=== PATIENT | female | born 1975 | race Hispanic/Latino ===

== ENCOUNTER 2018-07-16 01:18 | Observation (INO) | payer MEDICAID, SELFPAY ==
[2018-07-16 01:48] LABS: Pregnancy Test - Urine (BHCG) Negative (Negative); Pregu Control Background? CLEAR/WHITE (CLR/WHITE); Pregu Control Bar Appear? YES (CONTROL BAR)
[2018-07-16 01:51] LABS: Bacteria/HPF None Seen HPF (None Seen)
[2018-07-16 01:56] LABS: Bilirubin Negative (Negative); Blood, Urine Large (Negative); Glucose, Urine (Dipstick) Negative (Negative); Leukocyte Negative (Negative); Nitrite Negative (Negative); Protein, Urine (Dipstick) 30 mg/dL (Neg-Trace); Specific Gravity, Urine 1.025 (1.005-1.030); Urobilinogen 0.2 mg/dL (0.2-1.0)
[2018-07-16 01:57] LABS: Clarity Turbid (Clear); Pathc Cast-AUWi Flag 2.98 (0-2.49)
[2018-07-16 01:58] LABS: Hyaline Casts/LPF NONE SEEN LPF (0-3 Hyaline); Manual Microscopic Reviewed? No Path Casts Seen; RBC/HPF GREATER THAN 50-TNTC HPF (0-3)
[2018-07-16 01:59] LABS: Specific Gravity 1.025 (1.002-1.036)
[2018-07-16 02:16] LABS: #Basophils 0.1 thou/uL (0.0-0.2); #Eosinphils 0.2 thou/uL (0.0-0.7); #Lymphocytes 2.8 thou/uL (1.20-3.40); #Monocytes 0.7 thou/uL (0.11-0.59); #Neutrophils 6.1 thou/uL (1.40-6.50); %Basophils 1.3 % (0.0-1.0); %Eosinophils 2.1 % (0.0-10.0); %Neutrophils 61.6 % (42.0-75.0); Hemoglobin 14.1 g/dL (12.0-16.0); Mean Corpuscular Hemoglobin 34.5 pg (27.0-31.0); Mean Corpuscular Volume 98.4 fL (78.0-98.0); Mean Platelet Volume 7.6 fL (7.4-10.4); Platelet Count 302 thou/uL (130-400); RBC Distribution Width 11.4 % (11.5-14.5); White Blood Cell (WBC) Count 9.8 thou/uL (4.8-10.8)
[2018-07-16 02:44] LABS: ALT (SGPT) 44 U/L (8-55); AST (SGOT) 34 U/L (5-34); Albumin 4.1 g/dL (3.5-5.0); Alkaline Phosphatase 84 U/L (40-150); Anion Gap 11 mmol/L (10-20); BUN (Urea Nitrogen) 14 mg/dL (7.0-18.7); Bilirubin, Total 0.4 mg/dL (0.2-1.2); Calc. Creatinine Clearance 0 mL/min (70-130); Calcium 9.1 mg/dL (7.8-10.44); Carbon Dioxide 27 mmol/L (22-29); Chloride 102 mmol/L (98-107); Estimated GFR-MDRD 79; Globulin 3.9 g/dL (2.4-3.5); Glucose 114 mg/dL (70-105); Potassium 4.1 mmol/L (3.5-5.1); Sodium 136 mmol/L (136-145)
[2018-07-16 03:21] LABS: CKMB 1.5 ng/mL (0-6.6)
[2018-07-16] MEDS ORDERED: Morphine 4 MG/ML VIAL ONE (03:40)
[2018-07-16] MEDS ORDERED: Ketorolac Tromethamine 30 MG/ML VIAL ONE ×2 (03:40→10:30)
[2018-07-16] MEDS ORDERED: Nitroglycerin 2% Ointment 1 INCH/1 GM Packet ONE (06:03)
--- NOTE | 2018-07-16 08:14 | CT ---
PRELIMINARY REPORT/[facility]/EMERGENTY AFTER-HOURS PROCEDURE CT Angiography Chest With Contrast EXAM DATE/TIME: 07/16/2018 4:23 AM CLINICAL HISTORY: 42 years old, female; Pain; Chest pain; Type not specified; Abdominal pain; Flank; Lower; Patient HX: Patient states she thinks she has a kidney infection, reports back pain for 5 days. TECHNIQUE: Axial computed tomographic angiography images of the chest with intravenous contrast using CT angiogr aphy protocol. MIP reconstructed images were created and reviewed. COMPARISON: No relevant prior studies available. FINDINGS: Pulmonary arteries: There is no evidence of peripheral filling defects within the pulmonary arterial circulation to suggest pulmonary embolism. Aorta: The aorta is normal. There is no evidence of aortic dissection, leak, rupture, or other compli cations. Thyroid: The visualized thyroid gland is unremarkable. Lungs: Normal. No consolidation. No masses. Pleural space: Normal. No pneumothorax. No pleural effusion. Heart: Normal. No cardiomegaly. No pericardial effusion. Mediastinum: The trachea is normal. Lymph nodes: Unremarkable. No enlarged lymph nodes. Bones/joints: Unremarkable. No acute fracture. Soft tissues: Unremarkable. IMPRESSION: 1. There is no CT evidence of acute pulmonary embolism. 2. There is no evidence of aortic dissection, leak, rupture, or other complications. CT Angiography Abdomen With Contrast EXAM DATE/TIME: 07/16/2018 4:23 AM TECHNIQUE: Axial computed tomographic angiography images of the abdomen with intravenous contrast material, incl uding non-contrast images if performed. MIP and/or 3D reconstructed images were created and reviewed. MIP reconstructed images were created and reviewed. COMPARISON: No relevant prior studies available. FINDINGS: Lungs: Unremarkable. No consolidation. VASCULATURE: Aorta: The aorta is normal. There is no evidence of aortic dissection, leak, rupture, or other compli cations. Celiac trunk and mesenteric arteries: No occlusion or significant stenosis. Renal arteries: No occlusion or significant stenosis. ABDOMEN: Liver: There is a diffuse decrease in hepatic parenchymal density, consistent with mild fatty infiltr ation. Gallbladder and bile ducts: There has been a cholecystectomy. Pancreas: The pancreas appears normal. No ductal dilatation. Spleen: The spleen is normal. Adrenals: The adrenal glands are normal. Kidneys and ureters: The kidneys appear normal. No hydronephrosis. Stomach and bowel: There is no evidence of intestinal perforation or obstruction. The stomach is norm al. The duodenum is unremarkable. Appendix: A normal appendix is identified. Intraperitoneal space: Unremarkable. No free air. No significant fluid collection. Bones/joints: Unremarkable. No acute fracture. No dislocation. Soft tissues: Unremarkable. Lymph nodes: Unremarkable. No enlarged lymph nodes. IMPRESSION: There is no evidence of aortic dissection, leak, rupture, or other complications. Thank you for allowing us to participate in the care of your patient. Dictated and Authenticated by: Francisco Covington MD 07/16/2018 6:24 AM Central Time ([place] & [place]) FINAL REPORT CT ANGIOGRAM OF ABDOMEN AND CHEST AORTIC DISSECTION PROTOCOL: Date: 07/16/18 HISTORY: Pain. COMPARISON: Radiograph same date. TECHNIQUE: CT angiogram of the chest and abdomen performed after the intravenous administration of contrast for dissection protocol. 3D rendering was provided. FINDINGS/IMPRESSION: Findings and impression are concordant with the preliminary report by Vee. POS: [facility]
--- NOTE | 2018-07-16 09:22 | RAD ---
CHEST 1 VIEW: Date: 07/16/18 HISTORY: Chest pain. COMPARISON: Radiograph dated 01/04/17. FINDINGS: Lungs are clear. No pneumothorax or effusion. Cardiac silhouette and mediastinal contours within norm al limits. IMPRESSION: No acute intrathoracic abnormality. POS: [facility]
[2018-07-16] MEDS ORDERED: Acetaminophen 325 MG TAB PO PRN (09:37)
[2018-07-16] MEDS ORDERED: Ondansetron ODT 4 MG TAB PO PRN (09:37)
[2018-07-16] MEDS ORDERED: Ondansetron PF 4 MG/2 ML Vial IVP PRN (09:37)
[2018-07-16] MEDS ORDERED: Pantoprazole 40 MG VIAL IVP SCH ×2 (09:41→10:30)
[2018-07-16] MEDS ORDERED: Ketorolac Tromethamine 30 MG/ML VIAL IVP PRN (09:47)
[2018-07-16 10:00] LABS: Troponin I 0.032 ng/mL (< 0.028)
--- NOTE | 2018-07-16 10:26 | CT ---
CT ABDOMEN AND PELVIS WITHOUT CONTRAST STONE PROTOCOL: Date: 07/16/18 HISTORY: Evaluate for stone. COMPARISON: CT same date. FINDINGS: Lung bases are clear. No pericardial effusion. There is contrast within the renal collecting systems, for which a calculus is not able to be visuali zed. No hydroureteronephrosis. There is contrast within the urinary bladder. IMPRESSION: Contrast throughout the renal collecting systems and urinary bladder, for which there is inability of visualization of a calculus due to the contrast. There is, however, no secondary evidence of recentl y passed stone. There is no hydroureteronephrosis. Of note, there was no stone on the CT earlier this morning. POS: [facility]
[2018-07-16] MEDS ORDERED: Pantoprazole 40 MG VIAL ONE (10:30)
[2018-07-16] MEDS ORDERED: Enoxaparin Sodium 40 MG/0.4 ML SYRINGE ONE (10:30)
[2018-07-16 14:28] VITALS: BMI 36.1
[2018-07-16] MEDS: Sodium Chloride 0.9% 1,000 ML IV SCH ×2 (14:46→20:16)
[2018-07-16] MEDS ORDERED: Iopamidol 370 76% 100 ML VIAL ONE (17:11)
[2018-07-16] MEDS: HYDROcodone/Acetaminophen 5/325 mg Tablet PO PRN (19:02)
[2018-07-16] MEDS: Metoprolol Tartrate 50 MG TAB PO SCH (20:10)
[2018-07-16] MEDS: Pantoprazole 40 MG VIAL IVP SCH (20:10)
--- NOTE | 2018-07-16 20:45 | HP ---
PRIMARY CARE PHYSICIAN: Ms. Allie Aden. CHIEF COMPLAINT: Epigastric pain and nausea. HISTORY OF PRESENT ILLNESS: Mrs. Vasquez is a pleasant 42-year-old female, who had presented to [facility] with back pain and worsening epigastric pain that is worse after meals. She also reports pain is worse with movement. She states pain came on suddenly roughly 4 days ago and has gradually worsened each day. She states she has a past medical history of hypertension, which she was recently started on lisinopril and metoprolol by her primary care physician about 1-1/2 months ago. She also reports taking fluoxetine for history of depression. She states she is otherwise healthy with no other complaints. She states during this time, she denied any fever, chills, coughing, or shortness of breath. She states she had felt nauseous; however, she has denied any vomiting at this time. She states the pain that she is having is similar to how it felt when she had a flare-up of her gallbladder, which was surgically removed around that time. She denies any headache, dizziness, or trauma at this time. Upon arrival to the ER, her blood pressure was elevated at 186/106. She was given IV labetalol and transdermal nitroglycerin. She was also given aspirin 324mg orally and IV Toradol. She was also given IV morphine and a liter of normal saline. She states after these her symptoms did improve. She was accompanied by a family member at bedside, who had brought her into the emergency department earlier today. Her initial workup included troponins which were found to be slightly elevated at 0.041, which trended to 0.032. D-dimer was negative at 0.43. Urine was negative. She also underwent CT for dissection protocol, which was found to be unremarkable. She was deemed appropriate for an admission on the observation unit for further evaluation and management of her symptoms. REVIEW OF SYSTEMS: All other review of systems reviewed and negative unless mentioned in the HPI. PAST MEDICAL HISTORY: Hypertension. PAST SURGICAL HISTORY: Cholecystectomy and section. SOCIAL HISTORY: Reports 3 to 4 drinks about three times a week, denies any tobacco use or any illicit drug use. PSYCHIATRIC HISTORY: Does report some anxiety and depression. ALLERGIES: NO KNOWN ALLERGIES. CURRENT HOME MEDICATIONS: 1. Lisinopril 20 mg p.o. daily. 2. Metoprolol 50 mg p.o. b.i.d. 3. Fluoxetine 20 mg p.o. daily. PHYSICAL EXAMINATION: VITAL SIGNS: BP 140/65, pulse 69, respirations 16, temp 98.7 degrees Fahrenheit , O2 saturations 96% on room air. GENERAL: The patient is awake, alert, oriented x3. Appears to be in mild acute distress due to her epigastric pain. HEENT: Head is atraumatic and normocephalic. Pupils round and reactive to light. Extraocular muscles intact. Moist mucous membranes noted. Uvula midline. NECK: No JVD. Trachea midline. LUNGS: Clear to auscultation bilaterally. No wheezes, no rhonchi noted. CARDIOVASCULAR: Positive S1 and S2. Regular rate and rhythm. No murmur, no rub ABDOMEN: Soft, positive tenderness in epigastric area along with right upper quadrant. No rebound. No guarding. Bowel sounds present. MUSCULOSKELETAL: Strength 5+ bilaterally in upper and lower extremities. Pulses palpable bilaterally in upper and lower extremities. BACK: Positive CVA tenderness and tenderness to palpation over flank and around bilateral sides. NEUROLOGIC: Cranial nerves 2 through 12 intact. No focal deficits noted. Speech is intact and responding to questions normally. PSYCHIATRIC: Good mood and affect. LABORATORY DATA: WBC 9.8, RBC 4.1, hemoglobin 14.1, platelets 302. D-dimer is 0.43. Sodium 136, potassium 4.1, anion gap 11, creatinine 0.8, estimated GFR 79 , glucose 114, AST 34, ALT 44, alkaline phosphatase 84, CK-MB 1.5. Troponin upon admission 0.041, trended down at 0.032. Lipase 52. Urinalysis, red in color, 30+ protein, large blood, 7 to 10 WBCs, 7 to 10 squamous epithelial cells. negative. DIAGNOSTIC IMAGING: CT aortic dissection protocol found no CT evidence of acute pulmonary embolism. There is no evidence of aortic dissection leak, rupture, or other complications. ASSESSMENT AND PLAN: 1. Epigastric pain, this is likely noncardiac. However, with her elevated troponin, we will obtain stress test and echocardiogram. We will place the patient on IV Toradol as needed for her pain. We will check CT to rule out kidney stone. 2. Back pain. We will rule out kidney stone. We will also check urine culture. Her pain and symptoms seem to be worse with movement and activity, this is likely secondary to musculoskeletal in nature, continue IV Toradol as needed for her pain. Further workup and medical management pending her progress and clinical finding. 3. Elevated troponin, this is likely secondary to elevated blood pressures. We will monitor the patient's vital signs closely along with her clinical findings. We will hold off Cardiology consult for now. We will obtain stress test and echocardiogram for further evaluation. 4. Hypertension. Continue on patient's home regimen including lisinopril and metoprolol. Further adjustments pending her progress. 5. Anxiety and depression. Continue on patient's home dose of Prozac. 6. Gastrointestinal prophylaxis with IV Protonix and Zofran as needed for nausea. 7. Deep venous thrombosis prophylaxis with Lovenox. 8. Code status; full code. Job ID: [id number] MTDD
[2018-07-17] MEDS: Sodium Chloride 0.9% 1,000 ML IV SCH (05:50)
[2018-07-17 06:06] LABS: #Basophils 0.1 thou/uL (0.0-0.2); #Eosinphils 0.2 thou/uL (0.0-0.7); #Lymphocytes 1.9 thou/uL (1.20-3.40); #Monocytes 0.4 thou/uL (0.11-0.59); #Neutrophils 3.6 thou/uL (1.40-6.50); %Eosinophils 3.5 % (0.0-10.0); %Lymphocytes 30.3 % (21.0-51.0); %Monocytes 5.9 % (0.0-10.0); %Neutrophils 59.3 % (42.0-75.0); Hemoglobin 12.5 g/dL (12.0-16.0); Mean Corpuscular HGB CONC 34.6 g/dL (32.0-36.0); Mean Corpuscular Hemoglobin 34.2 pg (27.0-31.0); Mean Corpuscular Volume 98.9 fL (78.0-98.0); Mean Platelet Volume 7.5 fL (7.4-10.4); Platelet Count 268 thou/uL (130-400); RBC Distribution Width 11.3 % (11.5-14.5); Red Blood Cell (RBC) Count 3.65 mill/uL (4.20-5.40); White Blood Cell (WBC) Count 6.1 thou/uL (4.8-10.8)
[2018-07-17 06:27] LABS: ALT (SGPT) 54 U/L (8-55); AST (SGOT) 40 U/L (5-34)
[2018-07-17 06:28] LABS: Anion Gap 8 mmol/L (10-20); BUN (Urea Nitrogen) 7 mg/dL (7.0-18.7); Calc. Creatinine Clearance 146 mL/min (70-130); Calcium 8.1 mg/dL (7.8-10.44); Carbon Dioxide 27 mmol/L (22-29); Chloride 104 mmol/L (98-107); Estimated GFR-MDRD Greater than 90; Glucose 102 mg/dL (70-105); Lipase 30 U/L (8-78); Potassium 4.1 mmol/L (3.5-5.1); Sodium 135 mmol/L (136-145)
[2018-07-17] MEDS ORDERED: FLUoxetine HCl 20 MG CAP PO SCH (09:00)
[2018-07-17] MEDS ORDERED: Enoxaparin Sodium 40 MG/0.4 ML SYRINGE SC SCH (09:00)
[2018-07-17] MEDS ORDERED: Lisinopril 20 MG TAB PO SCH (09:00)
[2018-07-17] MEDS ORDERED: ADENOSINE 60 MG/20 ML VIAL ONE (09:32)
[2018-07-17] MEDS: Metoprolol Tartrate 50 MG TAB PO SCH (10:34)
[2018-07-17] MEDS: HYDROcodone/Acetaminophen 5/325 mg Tablet PO PRN (10:35)
[2018-07-17] MEDS: Pantoprazole 40 MG VIAL IVP SCH (10:35)
[2018-07-17 10:52] VITALS: TEMP 98
--- NOTE | 2018-07-17 11:00 | ULT ---
RIGHT UPPER QUADRANT ULTRASOUND: COMPARISON: 01/04/2017 ultrasound exam. INDICATION: Epigastric pain. FINDINGS: The gallbladder is not visualized. Correlate for a history of prior surgical removal. There is incr eased echogenicity of the liver which can be seen in the setting of fatty infiltration. No ascites. The common duct is normal measuring 5 mm in diameter. IMPRESSION: 1. Status post cholecystectomy. 2. Increased echogenicity of the liver which can be seen in the setting of fatty infiltration. POS: [facility]
--- NOTE | 2018-07-17 11:38 | NM ---
NUCLEAR MEDICINE CARDIAC PERFUSION EXAMINATION WITH EJECTION FRACTION: HISTORY: A 42-year-old female with chest pain, hypertension, and dyslipidemia. TECHNIQUE: A single-day nuclear medicine cardiac perfusion examination was performed. Rest images were obtained using 10.9 mCi of Technetium 99m sestamibi. Stress images were obtained using 30.9 mCi of Technetiu m 99m sestamibi and adenosine. FINDINGS: Tomographic images show no fixed or reversible perfusion defects. Gated images show normal wall silvia on with an ejection fraction of 52%. EDV is 134 mL. LHR is 0.2. TID is 1.18. IMPRESSION: No evidence of ischemia. POS: [facility]
[2018-07-17 12:19] VITALS: BP 173/81
--- NOTE | 2018-07-17 14:15 | PDOC.EVN ---
Event Note - Event Note Event Note: patient seen, case reviewed, agree with management
--- NOTE | 2018-07-21 10:32 | STRESS ---
Acquisition Time: 2018-07-17 08:59:38 Total Exercise Time: 00:04:00 Test Indications: CHEST PAIN Medications: Protocol: ADENOSINE Max HR: 104 BPM 58% of Pred: 179 BPM Max BP: 206/100 mmHG Max Work Load: 1.0 METS RESTING ECG: NORMAL SINUS RHYTHM AT 64 BPM WITH NON-SPECIFIC T-WAVE CHANGES SYMPTOMS: SHORTNESS OF BREATH AND CHEST PAIN NORMAL BP RESPONSE ECTOPY: NONE ECG STRESS: INVERTED T-WAVE IN V6 INTERPRETATION: AWAIT NUCLEAR IMAGES FOR DEFINITIVE DIAGNOSIS Confirmed by AHMET BLACKMAN ([id number]), clinical editor JARET WHEELER ([id number]) on 07/21/2018 10:31:35 AM Referred By: NICOLA COX Confirmed By:AHMET BLACKMAN
--- NOTE | 2018-07-22 19:11 | EKG ---
Test Reason : BACK PAIN Blood Pressure : / mmHG Vent. Rate : 075 BPM Atrial Rate : 075 BPM P-R Int : 182 ms QRS Dur : 082 ms QT Int : 402 ms P-R-T Axes : 014 -02 084 degrees QTc Int : 448 ms Normal sinus rhythm Voltage criteria for left ventricular hypertrophy Abnormal ECG Confirmed by COLLIN RALPH ([id number]), newspaper copy editor YONATHAN JOSEPH ([id number]) on 07/22/2018 7:10:33 PM Referred By: Confirmed By:COLLIN RALPH
== END 2018-07-17 15:15 | disposition home or self-care (01) ==
LOC: ERS 01:18 → ERHOLD 06:41 → 2SW 14:17
PROVIDERS: ADMIT Internal Medicine; ATTEND Internal Medicine
DX: R10.13 Epigastric pain (principal); R11.0 Nausea; I10 Essential (primary) hypertension; F41.9 Anxiety disorder, unspecified; F32.9 Major depressive disorder, single episode, unspecified; R79.89 Other specified abnormal findings of blood chemistry; Z79.899 Other long term (current) drug therapy
CPT/HCPCS: 36415; 71045; 71275; 74176; 76705; 78452; 80048; 80053; 81003; 81015; 81025; 82553; 83690; 84450; 84460; 84484; 85025; 85379; 87086; 93005; 93017; 96361; 96372; 96374; 96375; 96376; A9500; C9113; G0378; J0153; J1650; J1885; J2270; J3490

== ENCOUNTER 2018-08-31 21:06 | Inpatient (IN) | payer OTHER, SELFPAY ==
[~2018-08-31 21:06] MED LIST: Calcium Chloride 1 GM/10 ML Abboject SYRINGE ONE; EPINEPHrine 1 MG/10 ML Abboject SYRINGE ONE; ISOVUE-370 76%-LOCM 1 ML ONE; Norepinephrine 4 MG/4 ML VIAL ONE; PHENYLEPHRINE-NS 100 MCG/ML 10 ML SYRINGE ONE; Rocuronium Bromide 10 MG/ML (10ML VIAL) ONE; Sodium Bicarb 50 MEQ/50 ML VIAL ONE
[2018-08-31] MEDS ORDERED: Succinylcholine Chloride 20 MG/ML 10 ml SYRINGE FS ONE (21:23)
[2018-08-31] MEDS ORDERED: Lidocaine 2% PF 100 mg/5 ml Syringe ONE (21:23)
[2018-08-31] MEDS ORDERED: Fentanyl 100 MCG/2 ML VIAL ONE (21:23)
[2018-08-31 21:47] LABS: Hemoglobin 10.6 g/dL (12.0-16.0); Mean Corpuscular HGB CONC 33.3 g/dL (32.0-36.0); Mean Corpuscular Hemoglobin 35.7 pg (27.0-31.0); Mean Platelet Volume 8.2 fL (7.4-10.4); Platelet Count 254 thou/uL (130-400); RBC Distribution Width 11.5 % (11.5-14.5); Red Blood Cell (RBC) Count 2.96 mill/uL (4.20-5.40); White Blood Cell (WBC) Count 5.9 thou/uL (4.8-10.8)
[2018-08-31 21:48] LABS: BHCG - Serum Negative (NEGATIVE); Pregs Control Background? CLEAR/WHITE (CLR/WHITE); Pregs Control Bar Appear? YES (CONTROL BAR)
[2018-08-31 21:50] LABS: INR-International Normal Ratio 1.3; Prothrombin Time 16.1 SEC (12.0-14.7)
[2018-08-31 21:51] LABS: PTT 38.5 SEC (22.9-36.1)
[2018-08-31 21:55] LABS: ALT (SGPT) 464 U/L (8-55); AST (SGOT) 587 U/L (5-34); Albumin 3.2 g/dL (3.5-5.0); Alkaline Phosphatase 72 U/L (40-150); Anion Gap 27 mmol/L (10-20); BUN (Urea Nitrogen) 12 mg/dL (7.0-18.7); Bilirubin, Total 0.2 mg/dL (0.2-1.2); Calc. Creatinine Clearance 0 mL/min (70-130); Calcium 8.5 mg/dL (7.8-10.44); Carbon Dioxide 11 mmol/L (22-29); Chloride 108 mmol/L (98-107); Estimated GFR-MDRD 49; Globulin 2.7 g/dL (2.4-3.5); Glucose 198 mg/dL (70-105); Potassium 4.3 mmol/L (3.5-5.1); Protein, Total 5.9 g/dL (6.0-8.3); Sodium 142 mmol/L (136-145)
[2018-08-31 21:59] LABS: Band 5 % (5-11); Hypochromia SLIGHT = 6-15 cells (100X) (0-5/hpf); Lymphocytes 76 % (21-51); MDiff Complete? YES; Macrocytosis SLIGHT = 6-15 cells (100X) (0-5/hpf); Monocytes 4 % (0-10); Neutrophil 15 % (42-75); Platelet Morphology Comment Appears Adequate
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
[2018-08-31] MEDS ORDERED: Sodium Chloride 0.9% 30 ML ONE (22:27)
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
[2018-08-31] MEDS ORDERED: Midazolam HCl 5 mg/5 ml Vial ONE (22:37)
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
[2018-08-31] MEDS ORDERED: Insulin Regular 300 UNITS/3 ML VIAL ONE (22:59)
[2018-08-31] MEDS ORDERED: Sodium Bicarb 50 MEQ/50 ML Abboject 8.4% SYRINGE ONE ×3 (23:02→23:32)
[2018-08-31] MEDS ORDERED: Norepinephrine 8 MG/0.9% NS 250 ML ONE (23:04)
[2018-08-31] MEDS ORDERED: Heparin 10,000 UNITS/1 ML VIAL ONE (23:20)
[2018-08-31 23:56] LABS: PTT 72.6 SEC (22.9-36.1); Prothrombin Time 22.8 SEC (12.0-14.7)
[2018-09-01 00:18] LABS: Hemoglobin 5.8 g/dL (12.0-16.0)
[2018-09-01] MEDS ORDERED: Fentanyl 100 MCG/2 ML VIAL ONE (01:04)
[2018-09-01] MEDS: fentaNYL Citrate/PF 2,000 MCG in Sodium Chloride 0.9% 60 ML IV SCH ×2 (01:15→21:52)
[2018-09-01] MEDS ORDERED: Boostrix 0.5 ML VIAL IM ONE (01:18)
[2018-09-01] MEDS ORDERED: Dextrose 5% in Water 1,000 ML IV PRN (01:21)
[2018-09-01] MEDS ORDERED: Dextrose 50% Abboject 50 ML SYRINGE SLOW IVP PRN (01:21)
[2018-09-01] MEDS ORDERED: Sodium Chloride 0.9% 1,000 ML IV SCH (01:21)
[2018-09-01 01:29] LABS: Actual Bicarbonate (HCO3a) 18.8 mEq/L (22-28); Base Excess (BEa) -7.1 mEq/L (-2.0 to +3.0); CO2 Tension 39.2 mmHg (35.0-45.0); Calcium, Ionized 1.02 mmol/L (1.12-1.30); Carboxyhemoglobin (COHb) 0.2 gm% (0.0-3.0); Hemoglobin (Hb) 9.8 g/dL (12.0-16.0); O2 Tension (PaO2) 107.2 mmHg (80.0-100.0); Potassium - ABG Lab 3.41 mmol/L (3.70-5.30)
[2018-09-01] MEDS: Lactated Ringer's 1,000 ML IV SCH ×5 (01:35→20:00)
[2018-09-01 01:43] LABS: INR-International Normal Ratio 1.3; Prothrombin Time 15.9 SEC (12.0-14.7)
[2018-09-01 01:46] LABS: Puncture Site LINE
[2018-09-01 01:53] LABS: Anion Gap 19 mmol/L (10-20); BUN (Urea Nitrogen) 11 mg/dL (7.0-18.7); Calc. Creatinine Clearance 107 mL/min (70-130); Calcium 7.9 mg/dL (7.8-10.44); Carbon Dioxide 20 mmol/L (22-29); Chloride 112 mmol/L (98-107); Estimated GFR-MDRD 64; Glucose 181 mg/dL (70-105); Magnesium 1.6 mg/dL (1.6-2.6); Phosphorus 2.6 mg/dL (2.3-4.7); Potassium 3.5 mmol/L (3.5-5.1); Sodium 147 mmol/L (136-145)
[2018-09-01] MEDS ORDERED: Adacel (T-DAP) 0.5 ML SYRINGE IM ONE (02:00)
[2018-09-01 02:04] LABS: Amphetamine Not Detected (NotDetected); Barbiturates Screen Not Detected (NotDetected); Benzodiazepine Screen Not Detected (NotDetected); Cocaine Metabolite Screen Detected (NotDetected); Medtox Control Line Valid? VALID (VALID); Medtox Reader # READER 1; Methadone Not Detected (NotDetected); Methamphetamine Not Detected (NotDetected); Opiate Screen Not Detected (NotDetected); Oxycodone Screen Not Detected (NotDetected); Phencyclidine (PCP) Not Detected (NotDetected); THC/Cannabinoid Screen Not Detected (NotDetected); Tricyclic Screen Not Detected (NotDetected)
[2018-09-01 02:11] LABS: Hemoglobin 9.7 g/dL (12.0-16.0); Mean Corpuscular HGB CONC 32.8 g/dL (32.0-36.0); Mean Corpuscular Hemoglobin 29.4 pg (27.0-31.0); Mean Corpuscular Volume 89.7 fL (78.0-98.0); Mean Platelet Volume 7.3 fL (7.4-10.4); Platelet Count 96 thou/uL (130-400); RBC Distribution Width 13.1 % (11.5-14.5); Red Blood Cell (RBC) Count 3.29 mill/uL (4.20-5.40); White Blood Cell (WBC) Count 6.1 thou/uL (4.8-10.8)
[2018-09-01 02:26] LABS: Band 10 % (5-11); Hypochromia SLIGHT = 6-15 cells (100X) (0-5/hpf); Lymphocytes 11 % (21-51); MDiff Complete? YES; Neutrophil 79 % (42-75); Platelet Morphology Comment Appears Decreased
[2018-09-01 02:30] LABS: Anion Gap 17 mmol/L (10-20); BUN (Urea Nitrogen) 11 mg/dL (7.0-18.7); Calc. Creatinine Clearance 103 mL/min (70-130); Carbon Dioxide 21 mmol/L (22-29); Chloride 113 mmol/L (98-107); Estimated GFR-MDRD 61; Glucose 152 mg/dL (70-105); Magnesium 1.5 mg/dL (1.6-2.6); Potassium 3.2 mmol/L (3.5-5.1); Sodium 148 mmol/L (136-145)
[2018-09-01 02:32] LABS: Phosphorus 1.9 mg/dL (2.3-4.7)
[2018-09-01] MEDS ORDERED: PROPOFOL 0 ML ONE (03:00)
[2018-09-01] MEDS: Propofol 1,000 MG/100 ML VIAL IV ONE ×2 (03:02→03:03)
[2018-09-01] MEDS ORDERED: Magnesium 2 GM/50 ML 2 GM in Premix Bag 1 BAG IVPB SCH (03:30)
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
[2018-09-01] MEDS ORDERED: Calcium Chloride 13.6 MEQ in Sodium Chloride 0.9% 100 ML IVPB SCH (04:00)
[2018-09-01] MEDS ORDERED: Potassium Phosphate 30 MMOL in Sodium Chloride 0.9% 500 ML IVPB SCH (04:00)
[2018-09-01] MEDS ORDERED: Fentanyl BOLUS 250 ML IVPB PRN (05:18)
[2018-09-01] MEDS ORDERED: DISCONTINUE PREVIOUS NARCOTIC PAIN MEDICATIONS AND BENZODIAZEPINES FS SCH (05:18)
[2018-09-01] MEDS ORDERED: Propofol BOLUS 1,000 MG/100 ML VIAL IV PRN (05:18)
[2018-09-01] MEDS ORDERED: Lorazepam 2 MG/ML VIAL SLOW IVP PRN (05:18)
[2018-09-01 05:58] LABS: INR-International Normal Ratio 1.2; Prothrombin Time 15.5 SEC (12.0-14.7)
[2018-09-01 06:12] LABS: Lactic Acid 4.9 mmol/L (0.5-2.2)
[2018-09-01 06:15] LABS: Anion Gap 12 mmol/L (10-20); BUN (Urea Nitrogen) 14 mg/dL (7.0-18.7); Band 8 % (5-11); Calc. Creatinine Clearance 83 mL/min (70-130); Calcium 9.6 mg/dL (7.8-10.44); Carbon Dioxide 25 mmol/L (22-29); Chloride 115 mmol/L (98-107); Estimated GFR-MDRD 47; Glucose 99 mg/dL (70-105); Hemoglobin 8.7 g/dL (12.0-16.0); Hypochromia SLIGHT = 6-15 cells (100X) (0-5/hpf); Lymphocytes 24 % (21-51); MDiff Complete? YES; Magnesium 1.5 mg/dL (1.6-2.6); Mean Corpuscular HGB CONC 34.6 g/dL (32.0-36.0); Mean Corpuscular Hemoglobin 30.8 pg (27.0-31.0); Mean Platelet Volume 7.6 fL (7.4-10.4); Monocytes 3 % (0-10); Neutrophil 65 % (42-75); Phosphorus 2.3 mg/dL (2.3-4.7); Platelet Count 169 thou/uL (130-400); Platelet Morphology Comment Appears Adequate; Potassium 3.3 mmol/L (3.5-5.1); RBC Distribution Width 13.2 % (11.5-14.5); Red Blood Cell (RBC) Count 2.84 mill/uL (4.20-5.40); Sodium 149 mmol/L (136-145); White Blood Cell (WBC) Count 6.4 thou/uL (4.8-10.8)
[2018-09-01 07:32] LABS: Actual Bicarbonate (HCO3a) 26.2 mEq/L (22-28); Base Excess (BEa) 0.9 mEq/L (-2.0 to +3.0); CO2 Tension 44.9 mmHg (35.0-45.0); Calcium, Ionized 1.21 mmol/L (1.12-1.30); Carboxyhemoglobin (COHb) 0.4 gm% (0.0-3.0); Hemoglobin (Hb) 8.9 g/dL (12.0-16.0); O2 Tension (PaO2) 93.1 mmHg (80.0-100.0); Potassium - ABG Lab 3.73 mmol/L (3.70-5.30); pH, Arterial 7.38 (7.35-7.45)
[2018-09-01 07:33] LABS: ALV-art Gradient 135.975 (0-20); Puncture Site ALINE
[2018-09-01] MEDS: Famotidine/PF 20 mg/2ml Vial SLOW IVP SCH ×2 (08:37→21:27)
[2018-09-01] MEDS: CEFAZOLIN 2 GM in Premix Bag 1 BAG IVPB SCH ×2 (08:38→16:21)
--- NOTE | 2018-09-01 08:50 | RAD ---
CHEST 1 VIEW: Date: 09/01/18 HISTORY: Dyspnea. Surgery. Follow-up. COMPARISON: 08/31/18. FINDINGS: Cardiac silhouette is magnified by projection. Shallow inspiration accentuates pulmonary markings. Me diastinum is midline. Tip of the endotracheal catheter is at the level of the joseph. Tip of a left s ubclavian central venous catheter overlies the right atrium. No evidence of pneumothorax. Radiopaque bands over the upper abdomen are consistent with sponges from recent surgery. university president leads o verlie the chest. IMPRESSION: Endotracheal catheter tip is at the level of the joseph and should probably be withdrawn slightly at the time of this exam. Subsequent chest radiograph shows better placement of the catheter. POS: [facility]
--- NOTE | 2018-09-01 08:55 | RAD ---
CHEST 1 VIEW: HISTORY: Endotracheal catheter repositioned. COMPARISON: Earlier exam on the same date. FINDINGS: The tip of the endotracheal catheter is now approximately 3 cm above the level of the joseph, in good radiographic position. Other findings are stable. POS: [facility]
[2018-09-01] MEDS ORDERED: Piperacillin/Tazobactam 3.375 GM in Sodium Chloride 0.9% 100 ML IVPB SCH (09:00)
[2018-09-01] MEDS ORDERED: Famotidine 20 MG TAB PO SCH (09:00)
[2018-09-01] MEDS ORDERED: Prevnar 13-Val Conj/PF 0.5 ML SYRINGE IM ONE (09:00)
--- NOTE | 2018-09-01 09:14 | RAD ---
SINGLE VIEW OF THE CHEST: COMPARISON: 09/01/2018 at 1:24 a.m. HISTORY: Endotracheal tube replacement and withdrawal. FINDINGS: A single view of the chest shows a normal-size cardiomediastinal silhouette. The endotracheal tube h as been withdrawn with its tip between the clavicles and in good position. The other lines and tubes are unchanged in position. There is no evidence of consolidation, mass, or pleural effusion. There appear to be multiple radiopaque sponges in the upper abdomen. IMPRESSION: Appropriate position of an endotracheal tube. POS: [facility]
[2018-09-01] MEDS ORDERED: Potassium Chloride 40 MEQ in Premix Bag 1 BAG IVPB SCH (09:15)
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
[2018-09-01] MEDS: Propofol 1,000 MG/100 ML VIAL IV PRN (11:20)
[2018-09-01] MEDS ORDERED: Acetaminophen 1,000 MG in Premix Bag 1 BAG IVPB SCH (15:15)
[2018-09-01] MEDS: Acetaminophen 1,000 MG in Premix Bag 1 BAG IVPB SCH (18:46)
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
[2018-09-01] MEDS ORDERED: Lactated Ringer's 500 ML IV SCH (19:45)
[2018-09-01] MEDS: Lactated Ringer's 500 ML IV SCH (19:45)
[2018-09-02] MEDS: CEFAZOLIN 2 GM in Premix Bag 1 BAG IVPB SCH ×4 (00:02→23:07)
[2018-09-02] MEDS: Propofol 1,000 MG/100 ML VIAL IV PRN ×2 (00:10→18:14)
[2018-09-02] MEDS: Lactated Ringer's 1,000 ML IV SCH (03:01)
[2018-09-02] MEDS ORDERED: Lactated Ringer's 500 ML IV SCH (03:45)
[2018-09-02 05:00] LABS: Anion Gap 15 mmol/L (10-20); BUN (Urea Nitrogen) 25 mg/dL (7.0-18.7); Calc. Creatinine Clearance 56 mL/min (70-130); Calcium 7.4 mg/dL (7.8-10.44); Carbon Dioxide 24 mmol/L (22-29); Chloride 114 mmol/L (98-107); Estimated GFR-MDRD 30; Glucose 97 mg/dL (70-105); Magnesium 1.6 mg/dL (1.6-2.6); Phosphorus 6.3 mg/dL (2.3-4.7); Potassium 4.6 mmol/L (3.5-5.1); Sodium 148 mmol/L (136-145)
[2018-09-02] MEDS: Acetaminophen 1,000 MG in Premix Bag 1 BAG IVPB SCH ×4 (05:09→18:14)
[2018-09-02 05:28] LABS: Band 42 % (5-11); Eosinophils 1 % (0-10); Hemoglobin 8.5 g/dL (12.0-16.0); Lymphocytes 8 % (21-51); MDiff Complete? YES; Mean Corpuscular HGB CONC 33.3 g/dL (32.0-36.0); Mean Corpuscular Hemoglobin 30.3 pg (27.0-31.0); Mean Corpuscular Volume 90.9 fL (78.0-98.0); Mean Platelet Volume 8.6 fL (7.4-10.4); Metamyelocyte 9 % (0-0); Monocytes 6 % (0-10); Myelocyte 2 % (0-0); Neutrophil 30 % (42-75); Platelet Count 108 thou/uL (130-400); Platelet Morphology Comment Appears Decreased; RBC Distribution Width 14.4 % (11.5-14.5); RBC Morphology Normal; Reactive Lymphocytes 1 % (0-10); Red Blood Cell (RBC) Count 2.81 mill/uL (4.20-5.40); White Blood Cell (WBC) Count 5.1 thou/uL (4.8-10.8)
[2018-09-02] MEDS ORDERED: Sodium Bicarbonate 150 MEQ in Dextrose 5% in Water 1,000 ML IV SCH ×4 (08:30→20:00)
[2018-09-02] MEDS: Famotidine/PF 20 mg/2ml Vial SLOW IVP SCH ×2 (09:30→19:49)
--- NOTE | 2018-09-02 11:48 | PRG ---
DATE OF SERVICE: 09/02/2018 SUBJECTIVE: Ms. Vasquez is on the ventilator. She is sedated. OBJECTIVE: VITAL SIGNS: Heart rate 119 and blood pressure 120/58. Gastric drainage 250 over 24 hours. Blum output 855 over 24 hours, 173 mL this morning adequate. LUNGS: Clear to auscultation. CARDIAC: Regular rate and rhythm. No murmur or gallop. ABDOMEN: Soft. EXTREMITIES: Slight edema. LABORATORY DATA: White count 5, hemoglobin 8.5 stable from yesterday, and platelet count 108,000. Sodium 148, potassium 4.6, BUN 25, creatinine 1.83 from 1.24 yesterday, and magnesium 1.6 this morning. IMAGING DATA: Chest x-ray, no acute changes. Tubes and lines in proper position. ASSESSMENT AND PLAN: 1. Acute kidney injury. Continue to monitor. Urine output is adequate. 2. Open abdomen with closed fascia and packings. Plan; return to the operating room, abdominal washout, packing removal. Call hemostasis as indicated. Planned to place an ABThera. 3. Respiratory failure. 4. Anemia, stable. 5. Right calcaneus fracture with medial malleolar ankle fracture, open reduction and internal fixation later date. Job ID: [id number]
[2018-09-02] MEDS ORDERED: Phenylephrine HCL 10 MG/ML VIAL ONE (12:56)
[2018-09-02] MEDS: Insulin Regular 300 UNITS/3 ML VIAL SC PRN (12:59)
[2018-09-02] MEDS ORDERED: Bupivacaine HCl 0.5%/Epinephrine 1:200,000/PF 30 ml Vial ONE (13:12)
[2018-09-02 13:28] LABS: Anion Gap 16 mmol/L (10-20); BUN (Urea Nitrogen) 27 mg/dL (7.0-18.7); Calc. Creatinine Clearance 0 mL/min (70-130); Calcium 6.9 mg/dL (7.8-10.44); Carbon Dioxide 24 mmol/L (22-29); Chloride 110 mmol/L (98-107); Estimated GFR-MDRD 29; Glucose 135 mg/dL (70-105); Potassium 4.4 mmol/L (3.5-5.1); Sodium 146 mmol/L (136-145)
[2018-09-02 13:55] LABS: ALT (SGPT) 1640 U/L (8-55); Albumin 3.2 g/dL (3.5-5.0); Alkaline Phosphatase 41 U/L (40-150); Bilirubin, Direct 1.2 mg/dL (0.1-0.3); Bilirubin, Total 1.7 mg/dL (0.2-1.2)
[2018-09-02 14:25] LABS: AST (SGOT) Greater than 3500 U/L (5-34)
--- NOTE | 2018-09-02 15:55 | OP ---
DATE OF PROCEDURE: 09/02/2018 PREOPERATIVE DIAGNOSES: Abdominal trauma, status post liver resection right lobe with liver packs in place and fascia closed with beginning of the compartment with increased inspiratory pressures. POSTOPERATIVE DIAGNOSES: Abdominal trauma, status post liver resection right lobe with liver packs in place and fascia closed with beginning of the compartment with increased inspiratory pressures. PROCEDURES PERFORMED: Abdominal washout, removal of perihepatic and perisplenic liver packs 11 total, abdominal washout, exploratory laparotomy, ABThera placed with open abdomen with plans to return to the operating room in 48 to 72 hours for possible closure. FINDINGS: No evidence of bleeding. Spleen or liver, small bowel, and colon normal. ANESTHESIA: General. DESCRIPTION OF PROCEDURE: The patient was taken to the operating room, where under general anesthesia, abdomen was prepared with Betadine. Subcutaneous packings removed. Fascial sutures removed. IV bags removed. Abdominal perisplenic and perihepatic packings removed. Fluid evacuated. There was no evidence of active bleeding. Small bowel was ran from ligament of Treitz to the cecum, noted to be normal. Colon noted to be normal. Stomach normal. There was no evidence of enteric soilage. Right lobe of the liver inspected in the previous liver resection edges resected. There was no active bleeding. Area irrigated. Irrigant evacuated. Spleen evaluated. No active bleeding noted. Perisplenic packs removed. Abdominal cavity was irrigated thoroughly. Andra placed over the liver bed on the right. No packings were left in place. There was abundant omentum to use for hepatic packing. Sponge and needle counts were correct. ABThera was placed and foam secured to the skin edges with continuous suture of #1 PDS. Fascia was left open. On opening of the abdominal cavity, the inspiratory pressures diminished and dynamics improved. The patient tolerated the procedure well. Job ID: [id number]
[2018-09-02] MEDS ORDERED: Sodium Chloride 0.45% 1,000 ML IV SCH (16:00)
[2018-09-02 19:44] LABS: Hemoglobin 7.9 g/dL (12.0-16.0); Mean Corpuscular HGB CONC 32.5 g/dL (32.0-36.0); Mean Corpuscular Hemoglobin 29.6 pg (27.0-31.0); Mean Corpuscular Volume 91.3 fL (78.0-98.0); Platelet Count 77 thou/uL (130-400); RBC Distribution Width 14.5 % (11.5-14.5); Red Blood Cell (RBC) Count 2.67 mill/uL (4.20-5.40); White Blood Cell (WBC) Count 5.3 thou/uL (4.8-10.8)
[2018-09-02] MEDS: Lactated Ringer's 500 ML IV SCH (19:47)
[2018-09-02 19:57] LABS: ALT (SGPT) 1529 U/L (8-55); Albumin 2.8 g/dL (3.5-5.0); Alkaline Phosphatase 39 U/L (40-150); Anion Gap 16 mmol/L (10-20); BUN (Urea Nitrogen) 30 mg/dL (7.0-18.7); Bilirubin, Total 1.7 mg/dL (0.2-1.2); Calc. Creatinine Clearance 0 mL/min (70-130); Calcium 6.8 mg/dL (7.8-10.44); Carbon Dioxide 24 mmol/L (22-29); Chloride 110 mmol/L (98-107); Estimated GFR-MDRD 26; Globulin 1.7 g/dL (2.4-3.5); Glucose 110 mg/dL (70-105); Potassium 4.2 mmol/L (3.5-5.1); Protein, Total 4.5 g/dL (6.0-8.3); Sodium 146 mmol/L (136-145)
[2018-09-02 20:01] LABS: Band 20 % (5-11); Hypochromia SLIGHT = 6-15 cells (100X) (0-5/hpf); Lymphocytes 16 % (21-51); MDiff Complete? YES; Monocytes 11 % (0-10); Neutrophil 53 % (42-75); Platelet Morphology Comment Appears Decreased
[2018-09-02 20:07] LABS: AST (SGOT) Greater than 3500 U/L (5-34)
[2018-09-02] MEDS: Sodium Chloride 0.45% 1,000 ML IV SCH (20:20)
[2018-09-02] MEDS: fentaNYL Citrate/PF 2,000 MCG in Sodium Chloride 0.9% 60 ML IV SCH (20:23)
[2018-09-02] MEDS ORDERED: Hydrocortisone Sod Succ/PF 100 mg/2 ml Vial IVP SCH (21:00)
[2018-09-03] MEDS: Insulin Regular 300 UNITS/3 ML VIAL SC PRN (00:37)
[2018-09-03 00:45] LABS: Hemoglobin 7.6 g/dL (12.0-16.0); Platelet Count 72 thou/uL (130-400)
[2018-09-03] MEDS: Sodium Chloride 0.45% 1,000 ML IV SCH ×3 (02:41→18:38)
[2018-09-03] MEDS: Hydrocortisone Sod Succ/PF 100 mg/2 ml Vial IVP SCH ×3 (05:17→21:21)
[2018-09-03 06:26] LABS: ALT (SGPT) 910 U/L (8-55); AST (SGOT) 2515 U/L (5-34); Albumin 2.6 g/dL (3.5-5.0); Alkaline Phosphatase 41 U/L (40-150); Anion Gap 12 mmol/L (10-20); BUN (Urea Nitrogen) 32 mg/dL (7.0-18.7); Bilirubin, Total 1.3 mg/dL (0.2-1.2); Calc. Creatinine Clearance 50 mL/min (70-130); Calcium 6.6 mg/dL (7.8-10.44); Carbon Dioxide 26 mmol/L (22-29); Chloride 110 mmol/L (98-107); Estimated GFR-MDRD 25; Globulin 1.9 g/dL (2.4-3.5); Glucose 111 mg/dL (70-105); Magnesium 1.4 mg/dL (1.6-2.6); Phosphorus 4.2 mg/dL (2.3-4.7); Potassium 4.1 mmol/L (3.5-5.1); Protein, Total 4.5 g/dL (6.0-8.3); Sodium 144 mmol/L (136-145)
[2018-09-03 06:35] LABS: Band 18 % (5-11); Hemoglobin 7.5 g/dL (12.0-16.0); Hypochromia SLIGHT = 6-15 cells (100X) (0-5/hpf); Lymphocytes 7 % (21-51); MDiff Complete? YES; Mean Corpuscular HGB CONC 32.5 g/dL (32.0-36.0); Mean Corpuscular Hemoglobin 29.5 pg (27.0-31.0); Mean Corpuscular Volume 90.8 fL (78.0-98.0); Mean Platelet Volume 8.9 fL (7.4-10.4); Monocytes 5 % (0-10); Neutrophil 70 % (42-75); Platelet Count 69 thou/uL (130-400); Platelet Morphology Comment Appears Decreased; RBC Distribution Width 14.4 % (11.5-14.5); Red Blood Cell (RBC) Count 2.53 mill/uL (4.20-5.40); White Blood Cell (WBC) Count 6.4 thou/uL (4.8-10.8)
[2018-09-03 06:45] LABS: Actual Bicarbonate (HCO3a) 26.3 mEq/L (22-28); Base Excess (BEa) 2.5 mEq/L (-2.0 to +3.0); CO2 Tension 36.8 mmHg (35.0-45.0); Calcium, Ionized 0.86 mmol/L (1.12-1.30); Hemoglobin (Hb) 7.3 g/dL (12.0-16.0); Potassium - ABG Lab 3.84 mmol/L (3.70-5.30); pH, Arterial 7.47 (7.35-7.45)
[2018-09-03 06:49] LABS: Puncture Site ALINE
[2018-09-03] MEDS: Famotidine/PF 20 mg/2ml Vial SLOW IVP SCH ×2 (08:34→21:21)
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
[2018-09-03] MEDS: Propofol 1,000 MG/100 ML VIAL IV PRN (13:14)
[2018-09-03] MEDS ORDERED: Rocuronium Bromide 10 MG/ML (10ML VIAL) ONE (13:36)
[2018-09-03] MEDS ORDERED: Vecuronium 10 MG VIAL ONE (13:36)
[2018-09-03] MEDS: fentaNYL Citrate/PF 2,000 MCG in Sodium Chloride 0.9% 60 ML IV SCH (16:29)
[2018-09-04] MEDS: Sodium Chloride 0.45% 1,000 ML IV SCH ×3 (03:06→23:10)
[2018-09-04] MEDS: Propofol 1,000 MG/100 ML VIAL IV PRN ×2 (04:57→14:18)
[2018-09-04] MEDS: Hydrocortisone Sod Succ/PF 100 mg/2 ml Vial IVP SCH ×3 (05:20→23:10)
[2018-09-04] MEDS ORDERED: hydrALAZINE 20 MG/ML VIAL SLOW IVP SCH (06:00)
[2018-09-04 06:34] LABS: Hemoglobin 9.5 g/dL (12.0-16.0); Mean Corpuscular Hemoglobin 30.3 pg (27.0-31.0); Mean Corpuscular Volume 91.6 fL (78.0-98.0); Mean Platelet Volume 9.2 fL (7.4-10.4); Platelet Count 70 thou/uL (130-400); RBC Distribution Width 13.5 % (11.5-14.5); Red Blood Cell (RBC) Count 3.15 mill/uL (4.20-5.40); White Blood Cell (WBC) Count 11.5 thou/uL (4.8-10.8)
[2018-09-04 06:46] LABS: ALT (SGPT) 242 U/L (8-55); AST (SGOT) 583 U/L (5-34); Albumin 2.6 g/dL (3.5-5.0); Alkaline Phosphatase 72 U/L (40-150); Anion Gap 14 mmol/L (10-20); BUN (Urea Nitrogen) 35 mg/dL (7.0-18.7); Bilirubin, Total 1.5 mg/dL (0.2-1.2); Calc. Creatinine Clearance 51 mL/min (70-130); Calcium 6.8 mg/dL (7.8-10.44); Carbon Dioxide 24 mmol/L (22-29); Chloride 110 mmol/L (98-107); Estimated GFR-MDRD 26; Globulin 2.3 g/dL (2.4-3.5); Glucose 126 mg/dL (70-105); Potassium 3.7 mmol/L (3.5-5.1); Protein, Total 4.9 g/dL (6.0-8.3); Sodium 144 mmol/L (136-145)
[2018-09-04 06:50] LABS: Band 20 % (5-11); Eosinophils 2 % (0-10); Lymphocytes 9 % (21-51); MDiff Complete? YES; Monocytes 3 % (0-10); Myelocyte 1 % (0-0); Neutrophil 65 % (42-75); Platelet Morphology Comment Appears Decreased
[2018-09-04] MEDS ORDERED: Fentanyl 100 MCG/2 ML VIAL ONE (09:43)
[2018-09-04] MEDS: Famotidine/PF 20 mg/2ml Vial SLOW IVP SCH ×2 (10:16→23:10)
[2018-09-04] MEDS ORDERED: Dexamethasone 20 MG/5 ML VIAL ONE (11:28)
[2018-09-04] MEDS ORDERED: PROPOFOL 200 MG/20 ML VIAL ONE (11:28)
[2018-09-04] MEDS ORDERED: Vecuronium 10 MG VIAL ONE (11:28)
[2018-09-04] MEDS ORDERED: Rocuronium Bromide 10 MG/ML (10ML VIAL) ONE (11:28)
[2018-09-04] MEDS: fentaNYL Citrate/PF 2,000 MCG in Sodium Chloride 0.9% 60 ML IV SCH (12:12)
[2018-09-04] MEDS ORDERED: Calcium Chloride 13.6 MEQ in Sodium Chloride 0.9% 100 ML IVPB SCH (15:00)
[2018-09-04] MEDS ORDERED: Magnesium Sulfate 3 GM in Sodium Chloride 0.9% 100 ML IVPB SCH (15:00)
[2018-09-04] MEDS ORDERED: Labetalol HCl 100 MG/20 ML VIAL ONE (15:36)
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
[2018-09-05] MEDS: Insulin Regular 300 UNITS/3 ML VIAL SC PRN ×3 (02:56→16:39)
[2018-09-05] MEDS: fentaNYL Citrate/PF 2,000 MCG in Sodium Chloride 0.9% 60 ML IV SCH (04:17)
[2018-09-05] MEDS: Hydrocortisone Sod Succ/PF 100 mg/2 ml Vial IVP SCH ×2 (05:18→14:30)
[2018-09-05] MEDS: Sodium Chloride 0.45% 1,000 ML IV SCH ×3 (05:19→20:01)
[2018-09-05 06:16] LABS: ALT (SGPT) 93 U/L (8-55); AST (SGOT) 154 U/L (5-34); Albumin 2.7 g/dL (3.5-5.0); Alkaline Phosphatase 82 U/L (40-150); Anion Gap 13 mmol/L (10-20); BUN (Urea Nitrogen) 35 mg/dL (7.0-18.7); Calc. Creatinine Clearance 61 mL/min (70-130); Calcium 7.3 mg/dL (7.8-10.44); Carbon Dioxide 24 mmol/L (22-29); Chloride 110 mmol/L (98-107); Estimated GFR-MDRD 31; Globulin 2.5 g/dL (2.4-3.5); Glucose 159 mg/dL (70-105); Potassium 3.7 mmol/L (3.5-5.1); Protein, Total 5.2 g/dL (6.0-8.3); Sodium 143 mmol/L (136-145)
[2018-09-05] MEDS: Propofol 1,000 MG/100 ML VIAL IV PRN (06:22)
[2018-09-05 06:24] LABS: Hemoglobin 10.2 g/dL (12.0-16.0); Hypochromia SLIGHT = 6-15 cells (100X) (0-5/hpf); Lymphocytes 3 % (21-51); MDiff Complete? YES; Mean Corpuscular HGB CONC 33.5 g/dL (32.0-36.0); Mean Corpuscular Hemoglobin 30.8 pg (27.0-31.0); Mean Corpuscular Volume 92.1 fL (78.0-98.0); Monocytes 4 % (0-10); Neutrophil 93 % (42-75); Platelet Count 62 thou/uL (130-400); Platelet Morphology Comment Appears Decreased; RBC Distribution Width 13.5 % (11.5-14.5); Red Blood Cell (RBC) Count 3.31 mill/uL (4.20-5.40)
[2018-09-05 08:53] LABS: Magnesium 2.2 mg/dL (1.6-2.6); Phosphorus 3.5 mg/dL (2.3-4.7)
[2018-09-05] MEDS ORDERED: Furosemide 20 MG/2 ML VIAL SLOW IVP SCH ×2 (09:45)
[2018-09-05] MEDS: Famotidine/PF 20 mg/2ml Vial SLOW IVP SCH ×2 (09:57→20:00)
--- NOTE | 2018-09-05 11:48 | PRG ---
DATE OF SERVICE: Entered in error Job ID: [id number] MARILYN
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
[2018-09-05] MEDS ORDERED: Amlodipine 10 MG TAB PO SCH (14:15)
[2018-09-05] MEDS: Furosemide 20 MG/2 ML VIAL SLOW IVP SCH (17:36)
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
[2018-09-05] MEDS: Morphine 2 MG/ML SYRINGE SLOW IVP PRN (19:39)
[2018-09-05] MEDS: Enoxaparin Sodium 30 MG/0.3 ML SYRINGE SC SCH (20:00)
[2018-09-05] MEDS ORDERED: Labetalol HCl 100 MG/20 ML VIAL SLOW IVP SCH (21:00)
[2018-09-05 22:33] LABS: Bilirubin Negative (Negative); Blood, Urine Moderate (Negative); Clarity CLOUDY (Clear); Glucose, Urine (Dipstick) Negative (Negative); Leukocyte Negative (Negative); Nitrite Negative (Negative); Protein, Urine (Dipstick) 30 mg/dL (Neg-Trace); Specific Gravity, Urine 1.011 (1.002-1.036); Urobilinogen 0.2 mg/dL (0.2-1.0); pH, Urine 5.5 (5.0-9.0)
[2018-09-05 22:35] LABS: Bacteria/HPF None Seen HPF (None Seen); Hyaline Casts/LPF 4-6 HYALINE CAST LPF (0-3 Hyaline); Pathc Cast-AUWi Flag 1.45 (0-2.49); Squamous Epithelial 0-3 HPF (0-3)
[2018-09-05 22:39] LABS: Yeast-AUWi Flag 137.3 (0-25.0)
[2018-09-05] MEDS ORDERED: cloNIDine 0.1 MG TAB PO PRN (22:40)
[2018-09-06] MEDS: Morphine 2 MG/ML SYRINGE SLOW IVP PRN ×3 (00:11→09:01)
[2018-09-06] MEDS: niCARdipine HCl 25 MG in Sodium Chloride 0.9% 250 ML 240 ML IVPB SCH ×2 (00:12→09:44)
[2018-09-06] MEDS: Sodium Chloride 0.45% 1,000 ML IV SCH (03:58)
[2018-09-06] MEDS: fentaNYL Citrate/PF 2,000 MCG in Sodium Chloride 0.9% 60 ML IV SCH (04:43)
[2018-09-06] MEDS: Furosemide 20 MG/2 ML VIAL SLOW IVP SCH ×2 (05:00→17:12)
[2018-09-06 05:40] LABS: Band 20 % (5-11); Hemoglobin 9.8 g/dL (12.0-16.0); Lymphocytes 3 % (21-51); MDiff Complete? YES; Mean Corpuscular HGB CONC 34.2 g/dL (32.0-36.0); Mean Corpuscular Hemoglobin 31.1 pg (27.0-31.0); Mean Platelet Volume 9.6 fL (7.4-10.4); Metamyelocyte 8 % (0-0); Monocytes 9 % (0-10); Myelocyte 4 % (0-0); Neutrophil 56 % (42-75); Platelet Count 83 thou/uL (130-400); Platelet Morphology Comment Appears Decreased; RBC Distribution Width 13.3 % (11.5-14.5); Red Blood Cell (RBC) Count 3.14 mill/uL (4.20-5.40); White Blood Cell (WBC) Count 13.9 thou/uL (4.8-10.8)
[2018-09-06 05:49] LABS: Anion Gap 13 mmol/L (10-20); Calcium 7.4 mg/dL (7.8-10.44); Carbon Dioxide 27 mmol/L (22-29); Chloride 109 mmol/L (98-107); Glucose 140 mg/dL (70-105); Sodium 146 mmol/L (136-145)
[2018-09-06 05:50] LABS: BUN (Urea Nitrogen) 37 mg/dL (7.0-18.7); Calc. Creatinine Clearance 69 mL/min (70-130); Estimated GFR-MDRD 36; Phosphorus 2.2 mg/dL (2.3-4.7); Potassium 2.9 mmol/L (3.5-5.1)
[2018-09-06] MEDS ORDERED: Potassium Phosphate 30 MMOL in Sodium Chloride 0.9% 250 ML 250 ML IV PRN (06:09)
[2018-09-06] MEDS ORDERED: Magnesium 2 GM/50 ML 2 GM in Premix Bag 1 BAG IVPB SCH (07:15)
--- NOTE | 2018-09-06 08:38 | RAD ---
CHEST ONE VIEW: HISTORY: Intubated patient. Respiratory distress. COMPARISON: 09/01/2018 FINDINGS: Redemonstration of endotracheal and nasogastric tubes. Stable left-sided central venous catheter. T he heart is enlarged. There are bilateral pleural effusions with adjacent parenchymal changes. No p neumothorax. IMPRESSION: 1. Bilateral pleural and parenchymal changes. 2. Lines and tubes as above. POS: [facility]
[2018-09-06] MEDS ORDERED: Amlodipine 10 MG TAB PO SCH (09:00)
[2018-09-06] MEDS ORDERED: Hydrocortisone Sod Succ/PF 100 mg/2 ml Vial IVP SCH (09:00)
[2018-09-06] MEDS ORDERED: VANCOMYCIN IVPB PRN (09:09)
[2018-09-06] MEDS: Vancomycin HCl 1.5 GM in Sodium Chloride 0.9% 250 ML 300 ML IVPB SCH (09:44)
[2018-09-06] MEDS: Famotidine/PF 20 mg/2ml Vial SLOW IVP SCH ×2 (09:54→20:27)
[2018-09-06] MEDS: Enoxaparin Sodium 30 MG/0.3 ML SYRINGE SC SCH ×2 (09:55→20:30)
[2018-09-06] MEDS ORDERED: Midazolam HCl 2 mg/2 ml Vial ONE (10:17)
[2018-09-06] MEDS ORDERED: Haloperidol Lactate 5 MG/ML VIAL ONE ×2 (10:18→11:04)
[2018-09-06] MEDS: Piperacillin/Tazobactam 3.375 GM in Sodium Chloride 0.9% 100 ML IVPB SCH ×3 (12:31→23:31)
[2018-09-06] MEDS ORDERED: FLUoxetine HCl 20 MG CAP PER TUBE SCH (13:00)
[2018-09-06] MEDS ORDERED: Lisinopril 20 MG TAB PO SCH (14:20)
[2018-09-06] MEDS ORDERED: Metoprolol Tartrate 50 MG TAB PO SCH ×2 (14:30→21:00)
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
[2018-09-06] MEDS: Metoprolol Tartrate 50 MG TAB PER TUBE SCH (20:27)
[2018-09-07] MEDS: Piperacillin/Tazobactam 3.375 GM in Sodium Chloride 0.9% 100 ML IVPB SCH ×3 (05:06→17:06)
[2018-09-07 07:45] LABS: Hemoglobin 10.1 g/dL (12.0-16.0); Mean Corpuscular HGB CONC 32.5 g/dL (32.0-36.0); Mean Corpuscular Volume 92.4 fL (78.0-98.0); Mean Platelet Volume 9.2 fL (7.4-10.4); Platelet Count 136 thou/uL (130-400); RBC Distribution Width 13.6 % (11.5-14.5); Red Blood Cell (RBC) Count 3.36 mill/uL (4.20-5.40)
[2018-09-07] MEDS: Lisinopril 20 MG TAB PER TUBE SCH (07:48)
[2018-09-07] MEDS: FLUoxetine HCl 20 MG CAP PER TUBE SCH (07:48)
[2018-09-07] MEDS: Metoprolol Tartrate 50 MG TAB PER TUBE SCH ×2 (07:48→20:32)
[2018-09-07 08:07] LABS: Anion Gap 14 mmol/L (10-20); BUN (Urea Nitrogen) 36 mg/dL (7.0-18.7); Calc. Creatinine Clearance 81 mL/min (70-130); Calcium 7.8 mg/dL (7.8-10.44); Carbon Dioxide 30 mmol/L (22-29); Chloride 107 mmol/L (98-107); Estimated GFR-MDRD 43; Glucose 127 mg/dL (70-105); Magnesium 1.8 mg/dL (1.6-2.6); Phosphorus 2.9 mg/dL (2.3-4.7); Potassium 2.7 mmol/L (3.5-5.1); Sodium 148 mmol/L (136-145)
[2018-09-07] MEDS: Famotidine/PF 20 mg/2ml Vial SLOW IVP SCH ×2 (08:11→20:32)
[2018-09-07] MEDS: Enoxaparin Sodium 30 MG/0.3 ML SYRINGE SC SCH ×2 (08:12→20:32)
--- NOTE | 2018-09-07 08:22 | RAD ---
AP VIEW CHEST: HISTORY: Extubation. FINDINGS: AP view chest is obtained on 09/07/2018. Comparison is made to previous exam from 09/06/2018. AP view chest demonstrates a Dobbhoff feeding tube again to be seen. Left subclavian central triple- lumen catheter is seen. The patient has been extubated. There is decreased pulmonary vascular congestion compared to the previous day's exam. No evidence of effusions or pneumonia seen. IMPRESSION: Interval extubation of the patient. POS: [facility]
[2018-09-07] MEDS ORDERED: Magnesium Sulfate 2 GM in Sodium Chloride 0.9% 100 ML IVPB SCH (08:30)
[2018-09-07] MEDS ORDERED: Potassium Phosphate 30 MMOL, Magnesium Sulfate 2 GM in Sodium Chloride 0.9% 250 ML 250 ML IV SCH (08:45)
[2018-09-07] MEDS ORDERED: Lisinopril 20 MG TAB PO SCH (09:00)
[2018-09-07 09:08] LABS: Band 20 % (5-11); Eosinophils 4 % (0-10); Lymphocytes 16 % (21-51); MDiff Complete? YES; Metamyelocyte 2 % (0-0); Monocytes 5 % (0-10); Neutrophil 52 % (42-75); Platelet Morphology Comment Appears Adequate; Polychromasia SLIGHT = 2-3 cells (100X) (0-2/hpf); Reactive Lymphocytes 1 % (0-10)
[2018-09-07] MEDS: traMADol HCl 50 MG TAB PO PRN (09:17)
[2018-09-07] MEDS: Acetaminophen 500 MG TAB PO SCH ×3 (09:17→20:32)
[2018-09-07] MEDS: Vancomycin HCl 1.5 GM in Sodium Chloride 0.9% 250 ML 300 ML IVPB SCH (09:19)
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
[2018-09-07] MEDS: Ondansetron PF 4 MG/2 ML Vial IVP PRN (14:34)
[2018-09-07] MEDS: Morphine 2 MG/ML SYRINGE SLOW IVP PRN ×2 (16:27→20:34)
[2018-09-07] MEDS: Senokot 8.6 MG TAB PO SCH (20:11)
[2018-09-08] MEDS: Morphine 2 MG/ML SYRINGE SLOW IVP PRN (00:07)
[2018-09-08] MEDS: Piperacillin/Tazobactam 3.375 GM in Sodium Chloride 0.9% 100 ML IVPB SCH ×5 (00:07→23:19)
[2018-09-08] MEDS: hydrALAZINE 20 MG/ML VIAL SLOW IVP PRN ×2 (00:07→10:37)
[2018-09-08] MEDS: Acetaminophen 500 MG TAB PO SCH ×4 (04:55→20:35)
[2018-09-08 05:20] LABS: Anion Gap 13 mmol/L (10-20); BUN (Urea Nitrogen) 26 mg/dL (7.0-18.7); Calc. Creatinine Clearance 89 mL/min (70-130); Calcium 7.7 mg/dL (7.8-10.44); Carbon Dioxide 31 mmol/L (22-29); Chloride 104 mmol/L (98-107); Estimated GFR-MDRD 52; Glucose 106 mg/dL (70-105); Magnesium 1.6 mg/dL (1.6-2.6); Phosphorus 2.9 mg/dL (2.3-4.7); Sodium 145 mmol/L (136-145)
[2018-09-08 05:37] LABS: Potassium 2.7 mmol/L (3.5-5.1)
[2018-09-08] MEDS ORDERED: Potassium Phosphate 30 MMOL, Magnesium Sulfate 2 GM in Sodium Chloride 0.9% 500 ML IVPB SCH (06:15)
[2018-09-08] MEDS ORDERED: Potassium Phosphate 30 MMOL in Sodium Chloride 0.9% 500 ML IVPB SCH (07:30)
[2018-09-08] MEDS ORDERED: Magnesium 2 GM/50 ML 2 GM in Premix Bag 1 BAG IVPB SCH (07:30)
[2018-09-08] MEDS: Enoxaparin Sodium 30 MG/0.3 ML SYRINGE SC SCH ×2 (08:56→20:35)
[2018-09-08 08:57] LABS: Hemoglobin 10.8 g/dL (12.0-16.0); Mean Corpuscular HGB CONC 32.2 g/dL (32.0-36.0); Mean Platelet Volume 8.8 fL (7.4-10.4); Platelet Count 229 thou/uL (130-400); RBC Distribution Width 13.7 % (11.5-14.5); Red Blood Cell (RBC) Count 3.59 mill/uL (4.20-5.40); White Blood Cell (WBC) Count 23.3 thou/uL (4.8-10.8)
[2018-09-08] MEDS: Famotidine/PF 20 mg/2ml Vial SLOW IVP SCH ×2 (08:57→20:35)
[2018-09-08] MEDS: FLUoxetine HCl 20 MG CAP PER TUBE SCH (08:57)
[2018-09-08] MEDS: Metoprolol Tartrate 50 MG TAB PER TUBE SCH ×2 (08:57→20:35)
[2018-09-08] MEDS: Lisinopril 20 MG TAB PER TUBE SCH (08:57)
[2018-09-08] MEDS: Polyethylene Glycol 3350 17 GM Packet PO SCH (08:58)
[2018-09-08] MEDS: Senokot 8.6 MG TAB PO SCH ×2 (09:10→20:35)
[2018-09-08 09:13] LABS: Band 13 % (5-11); Eosinophils 4 % (0-10); Lymphocytes 10 % (21-51); MDiff Complete? YES; Metamyelocyte 3 % (0-0); Monocytes 3 % (0-10); Neutrophil 67 % (42-75); Platelet Morphology Comment Appears Adequate; Polychromasia SLIGHT = 2-3 cells (100X) (0-2/hpf)
[2018-09-08 09:16] LABS: Vancomycin, Trough 10.8 ug/mL
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
[2018-09-08] MEDS ORDERED: Vancomycin HCl 1 GM in Premix Bag 1 BAG IVPB SCH (10:00)
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
[2018-09-08] MEDS: Vancomycin HCl 1 GM in Premix Bag 1 BAG IVPB SCH (21:00)
[2018-09-08] MEDS: Ondansetron PF 4 MG/2 ML Vial IVP PRN (21:00)
[2018-09-09] MEDS: Acetaminophen 500 MG TAB PO SCH ×4 (03:11→20:10)
[2018-09-09] MEDS: hydrALAZINE 20 MG/ML VIAL SLOW IVP PRN (03:19)
[2018-09-09 04:05] LABS: Hemoglobin 10.3 g/dL (12.0-16.0); Mean Corpuscular Hemoglobin 30.7 pg (27.0-31.0); Mean Corpuscular Volume 93.1 fL (78.0-98.0); Mean Platelet Volume 8.6 fL (7.4-10.4); Platelet Count 276 thou/uL (130-400); RBC Distribution Width 13.9 % (11.5-14.5); Red Blood Cell (RBC) Count 3.36 mill/uL (4.20-5.40); White Blood Cell (WBC) Count 21.8 thou/uL (4.8-10.8)
[2018-09-09 04:06] LABS: Band 1 % (5-11); Hypochromia SLIGHT = 6-15 cells (100X) (0-5/hpf); Lymphocytes 1 % (21-51); MDiff Complete? YES; Monocytes 8 % (0-10); Neutrophil 90 % (42-75); Platelet Morphology Comment Appears Adequate
[2018-09-09 04:14] LABS: Anion Gap 10 mmol/L (10-20); BUN (Urea Nitrogen) 18 mg/dL (7.0-18.7); Calc. Creatinine Clearance 107 mL/min (70-130); Calcium 7.4 mg/dL (7.8-10.44); Carbon Dioxide 32 mmol/L (22-29); Chloride 105 mmol/L (98-107); Estimated GFR-MDRD 59; Glucose 129 mg/dL (70-105); Magnesium 1.7 mg/dL (1.6-2.6); Phosphorus 2.9 mg/dL (2.3-4.7); Sodium 144 mmol/L (136-145)
[2018-09-09 04:18] LABS: Potassium 2.8 mmol/L (3.5-5.1)
[2018-09-09] MEDS ORDERED: Potassium Phosphate 30 MMOL in Sodium Chloride 0.9% 250 ML 250 ML IVPB SCH (04:45)
[2018-09-09] MEDS: Piperacillin/Tazobactam 3.375 GM in Sodium Chloride 0.9% 100 ML IVPB SCH (05:09)
[2018-09-09] MEDS ORDERED: Magnesium 2 GM/50 ML 2 GM in Premix Bag 1 BAG IVPB SCH (09:00)
--- NOTE | 2018-09-09 09:28 | RAD ---
PORTABLE AP CHEST: Date: 09/09/18 HISTORY: Pneumonia. COMPARISON: 09/07/18. FINDINGS: The Dobbhoff feeding tube has been removed. Left subclavian central venous catheter remains in place and unchanged in position. Cardiac silhouette and bronchovascular markings are accentuated by the sha llow depth of inspiration and the portable technique. The lungs are clear. No consolidation or pleura l fluid is appreciated. Midline skin clips in the epigastric region are not well delineated on this e xam and may have been removed. No other findings. IMPRESSION: 1. No acute cardiopulmonary process. 2. Interval removal of the Dobbhoff feeding tube, but left subclavian central venous catheter is sta ble in position. POS: [facility]
[2018-09-09] MEDS: FLUoxetine HCl 20 MG CAP PER TUBE SCH (09:48)
[2018-09-09] MEDS: Famotidine/PF 20 mg/2ml Vial SLOW IVP SCH ×2 (09:48→22:10)
[2018-09-09] MEDS: Lisinopril 20 MG TAB PER TUBE SCH (09:48)
[2018-09-09] MEDS: Enoxaparin Sodium 30 MG/0.3 ML SYRINGE SC SCH ×2 (09:49→20:14)
[2018-09-09] MEDS: Polyethylene Glycol 3350 17 GM Packet PO SCH (09:49)
[2018-09-09] MEDS: Senokot 8.6 MG TAB PO SCH ×2 (09:49→19:16)
[2018-09-09] MEDS: Metoprolol Tartrate 50 MG TAB PER TUBE SCH ×2 (09:49→20:13)
[2018-09-09] MEDS: Vancomycin HCl 1 GM in Premix Bag 1 BAG IVPB SCH (09:49)
[2018-09-09] MEDS ORDERED: Potassium Chloride 20 MEQ TAB PO SCH (11:00)
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
[2018-09-09] MEDS ORDERED: Lisinopril 20 MG TAB PER TUBE SCH (21:00)
[2018-09-09] MEDS ORDERED: Famotidine 20 MG TAB PO SCH (22:30)
[2018-09-10] MEDS: traMADol HCl 50 MG TAB PO PRN ×3 (00:01→07:24)
[2018-09-10] MEDS: hydrALAZINE 20 MG/ML VIAL SLOW IVP PRN (03:43)
[2018-09-10] MEDS: Acetaminophen 500 MG TAB PO SCH ×4 (03:56→20:38)
[2018-09-10 08:22] LABS: Anion Gap 14 mmol/L (10-20); BUN (Urea Nitrogen) 13 mg/dL (7.0-18.7); Calc. Creatinine Clearance 106 mL/min (70-130); Carbon Dioxide 25 mmol/L (22-29); Chloride 107 mmol/L (98-107); Estimated GFR-MDRD 64; Glucose 106 mg/dL (70-105); Magnesium 1.6 mg/dL (1.6-2.6); Phosphorus 2.5 mg/dL (2.3-4.7); Sodium 143 mmol/L (136-145)
[2018-09-10 08:27] LABS: Potassium 2.9 mmol/L (3.5-5.1)
[2018-09-10 08:40] LABS: Band 6 % (5-11); Eosinophils 1 % (0-10); Hemoglobin 10.7 g/dL (12.0-16.0); Lymphocytes 13 % (21-51); MDiff Complete? YES; Mean Corpuscular HGB CONC 32.7 g/dL (32.0-36.0); Mean Corpuscular Hemoglobin 30.6 pg (27.0-31.0); Mean Corpuscular Volume 93.5 fL (78.0-98.0); Mean Platelet Volume 8.7 fL (7.4-10.4); Metamyelocyte 1 % (0-0); Monocytes 7 % (0-10); Neutrophil 72 % (42-75); Platelet Count 357 thou/uL (130-400); RBC Distribution Width 13.9 % (11.5-14.5); White Blood Cell (WBC) Count 22.7 thou/uL (4.8-10.8)
[2018-09-10] MEDS: Lisinopril 20 MG TAB PO SCH ×2 (08:41→20:37)
[2018-09-10] MEDS: Senokot 8.6 MG TAB PO SCH ×2 (08:45→20:38)
[2018-09-10] MEDS: FLUoxetine HCl 20 MG CAP PO SCH (08:46)
[2018-09-10] MEDS: Famotidine 20 MG TAB PO SCH ×2 (08:46→20:38)
[2018-09-10] MEDS: Enoxaparin Sodium 30 MG/0.3 ML SYRINGE SC SCH ×2 (08:46→20:42)
[2018-09-10] MEDS: Polyethylene Glycol 3350 17 GM Packet PO SCH (08:47)
[2018-09-10] MEDS ORDERED: Metoprolol Tartrate 50 MG TAB PO SCH (09:00)
[2018-09-10] MEDS ORDERED: Potassium Phosphate 30 MMOL in Sodium Chloride 0.9% 500 ML IVPB SCH (09:00)
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
[2018-09-10] MEDS ORDERED: Hydrochlorothiazide 25 MG TAB PO SCH (14:30)
[2018-09-10] MEDS: Metoprolol Tartrate 50 MG TAB PO SCH ×2 (15:17→20:38)
[2018-09-11] MEDS: Acetaminophen 500 MG TAB PO SCH ×4 (03:20→20:24)
[2018-09-11] MEDS: Ondansetron PF 4 MG/2 ML Vial IVP PRN (04:44)
[2018-09-11] MEDS: hydrALAZINE 20 MG/ML VIAL SLOW IVP PRN (05:10)
[2018-09-11] MEDS: Senokot 8.6 MG TAB PO SCH ×2 (08:40→20:24)
[2018-09-11] MEDS: Hydrochlorothiazide 25 MG TAB PO SCH (08:40)
[2018-09-11] MEDS: Lisinopril 20 MG TAB PO SCH ×2 (08:40→20:23)
[2018-09-11] MEDS: Metoprolol Tartrate 50 MG TAB PO SCH ×4 (08:41→20:25)
[2018-09-11] MEDS: Enoxaparin Sodium 30 MG/0.3 ML SYRINGE SC SCH ×2 (08:41→20:23)
[2018-09-11] MEDS: Famotidine 20 MG TAB PO SCH ×2 (08:41→20:24)
[2018-09-11] MEDS: FLUoxetine HCl 20 MG CAP PO SCH (08:41)
[2018-09-11] MEDS: Polyethylene Glycol 3350 17 GM Packet PO SCH (08:41)
[2018-09-11 08:55] LABS: Anion Gap 12 mmol/L (10-20); BUN (Urea Nitrogen) 11 mg/dL (7.0-18.7); Calc. Creatinine Clearance 116 mL/min (70-130); Calcium 8.4 mg/dL (7.8-10.44); Carbon Dioxide 27 mmol/L (22-29); Chloride 104 mmol/L (98-107); Estimated GFR-MDRD 70; Glucose 121 mg/dL (70-105); Magnesium 1.9 mg/dL (1.6-2.6); Phosphorus 3.1 mg/dL (2.3-4.7); Potassium 3.1 mmol/L (3.5-5.1); Sodium 140 mmol/L (136-145)
[2018-09-11 09:13] LABS: Band 3 % (5-11); Eosinophils 2 % (0-10); Hemoglobin 10.3 g/dL (12.0-16.0); Hypochromia SLIGHT = 6-15 cells (100X) (0-5/hpf); Lymphocytes 8 % (21-51); MDiff Complete? YES; Mean Corpuscular HGB CONC 31.5 g/dL (32.0-36.0); Mean Corpuscular Hemoglobin 29.3 pg (27.0-31.0); Mean Corpuscular Volume 93.2 fL (78.0-98.0); Mean Platelet Volume 8.2 fL (7.4-10.4); Monocytes 5 % (0-10); Neutrophil 81 % (42-75); Platelet Count 383 thou/uL (130-400); Platelet Morphology Comment Appears Adequate; Polychromasia SLIGHT = 2-3 cells (100X) (0-2/hpf); RBC Distribution Width 14.2 % (11.5-14.5); White Blood Cell (WBC) Count 17.5 thou/uL (4.8-10.8)
[2018-09-11] MEDS ORDERED: Magnesium 2 GM/50 ML 4 GM in Premix Bag 1 BAG IVPB SCH (11:00)
[2018-09-11] MEDS ORDERED: Potassium Phosphate 30 MMOL in Sodium Chloride 0.9% 500 ML IVPB SCH (11:00)
[2018-09-11] MEDS ORDERED: Potassium Phosphate 30 MMOL, Magnesium Sulfate 4 GM in Sodium Chloride 0.9% 250 ML 250 ML IVPB SCH (11:30)
[2018-09-11 11:44] LABS: Actual Bicarbonate (HCO3a) 16.7 mEq/L (22-28); Analyzer IN Cardio OR; Base Excess (BEa) -9.1 mEq/L (-2.0 to +3.0); CO2 Tension 35.6 mmHg (35.0-45.0); Calcium, Ionized 0.99 mmol/L (1.12-1.30); Carboxyhemoglobin (COHb) 0.5 gm% (0.0-3.0); Hemoglobin (Hb) 6.3 g/dL (12.0-16.0); O2 Tension (PaO2) 427.6 mmHg (80.0-100.0); Potassium - ABG Lab 3.79 mmol/L (3.70-5.30); pH, Arterial 7.29 (7.35-7.45)
[2018-09-11 11:44] LABS: Actual Bicarbonate (HCO3a) 16.7 mEq/L (22-28); Analyzer IN Cardio OR; Base Excess (BEa) -9.4 mEq/L (-2.0 to +3.0); CO2 Tension 37.4 mmHg (35.0-45.0); Calcium, Ionized 0.79 mmol/L (1.12-1.30); Carboxyhemoglobin (COHb) 0.2 gm% (0.0-3.0); Hemoglobin (Hb) 7.7 g/dL (12.0-16.0); O2 Tension (PaO2) 372.8 mmHg (80.0-100.0); Potassium - ABG Lab 4.21 mmol/L (3.70-5.30); pH, Arterial 7.27 (7.35-7.45)
[2018-09-11 11:45] LABS: Actual Bicarbonate (HCO3a) 9.1 mEq/L (22-28); Analyzer IN Cardio OR; Base Excess (BEa) -20.8 mEq/L (-2.0 to +3.0); CO2 Tension 35.7 mmHg (35.0-45.0); Calcium, Ionized 0.89 mmol/L (1.12-1.30); Carboxyhemoglobin (COHb) 0.3 gm% (0.0-3.0); Potassium - ABG Lab 4.35 mmol/L (3.70-5.30)
[2018-09-11 11:46] LABS: Puncture Site ALINE; pH, Arterial 7.02 (7.35-7.45)
[2018-09-11 11:46] LABS: Puncture Site ALINE
[2018-09-11 11:47] LABS: Puncture Site ALINE
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
[2018-09-12] MEDS: traMADol HCl 50 MG TAB PO PRN ×3 (03:39→16:14)
[2018-09-12] MEDS: Acetaminophen 500 MG TAB PO SCH ×4 (03:41→20:02)
[2018-09-12 07:28] LABS: Anion Gap 12 mmol/L (10-20); BUN (Urea Nitrogen) 12 mg/dL (7.0-18.7); Calc. Creatinine Clearance 114 mL/min (70-130); Calcium 7.3 mg/dL (7.8-10.44); Carbon Dioxide 23 mmol/L (22-29); Chloride 108 mmol/L (98-107); Estimated GFR-MDRD 70; Glucose 106 mg/dL (70-105); Magnesium 1.8 mg/dL (1.6-2.6); Phosphorus 3.5 mg/dL (2.3-4.7); Potassium 3.3 mmol/L (3.5-5.1); Sodium 140 mmol/L (136-145)
[2018-09-12 08:14] LABS: Hemoglobin 8.8 g/dL (12.0-16.0); Mean Corpuscular HGB CONC 33.3 g/dL (32.0-36.0); Mean Corpuscular Hemoglobin 30.6 pg (27.0-31.0); Mean Corpuscular Volume 92.1 fL (78.0-98.0); Mean Platelet Volume 8.9 fL (7.4-10.4); Platelet Count 367 thou/uL (130-400); RBC Distribution Width 14.3 % (11.5-14.5); Red Blood Cell (RBC) Count 2.86 mill/uL (4.20-5.40); White Blood Cell (WBC) Count 13.6 thou/uL (4.8-10.8)
[2018-09-12 08:19] LABS: Band 4 % (5-11); Eosinophils 2 % (0-10); Lymphocytes 12 % (21-51); MDiff Complete? YES; Metamyelocyte 3 % (0-0); Monocytes 3 % (0-10); Myelocyte 2 % (0-0); Neutrophil 63 % (42-75); Platelet Morphology Comment Appears Adequate; Polychromasia SLIGHT = 2-3 cells (100X) (0-2/hpf); Reactive Lymphocytes 11 % (0-10)
[2018-09-12] MEDS ORDERED: CEFAZOLIN 2 GM in Premix Bag 1 BAG IVPB SCH (08:30)
[2018-09-12] MEDS: Polyethylene Glycol 3350 17 GM Packet PO SCH (08:52)
[2018-09-12] MEDS: Senokot 8.6 MG TAB PO SCH ×2 (08:52→20:03)
[2018-09-12] MEDS: Enoxaparin Sodium 30 MG/0.3 ML SYRINGE SC SCH ×2 (08:52→20:02)
[2018-09-12] MEDS: Lisinopril 20 MG TAB PO SCH ×2 (08:52→20:02)
[2018-09-12] MEDS: Metoprolol Tartrate 50 MG TAB PO SCH ×4 (08:53→20:02)
[2018-09-12] MEDS: Hydrochlorothiazide 25 MG TAB PO SCH (08:53)
[2018-09-12] MEDS: FLUoxetine HCl 20 MG CAP PO SCH (08:53)
[2018-09-12] MEDS: Famotidine 20 MG TAB PO SCH ×2 (08:53→20:02)
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
[2018-09-12] MEDS ORDERED: Bupivacaine HCl 0.5%/Epinephrine 1:200,000/PF 30 ml Vial ONE (13:27)
[2018-09-12 14:41] LABS: Bilirubin Negative (Negative); Blood, Urine Moderate (Negative); Clarity CLEAR (Clear); Glucose, Urine (Dipstick) Negative (Negative); Leukocyte Negative (Negative); Nitrite Negative (Negative); Protein, Urine (Dipstick) 30 mg/dL (Neg-Trace); Specific Gravity, Urine 1.015 (1.002-1.036); Urobilinogen 0.2 mg/dL (0.2-1.0)
[2018-09-12 14:43] LABS: Bacteria/HPF None Seen HPF (None Seen); Pathc Cast-AUWi Flag 2.47 (0-2.49); Yeast-AUWi Flag 24.8 (0-25.0)
[2018-09-12 14:54] LABS: Renal Epithelial None Seen HPF (0-3); Transitional Epithelial NONE SEEN HPF (0-3)
[2018-09-12 14:55] LABS: Hyaline Casts/LPF NONE SEEN LPF (0-3 Hyaline)
[2018-09-13] MEDS: Acetaminophen 500 MG TAB PO SCH ×4 (04:01→20:39)
[2018-09-13 06:11] LABS: #Eosinphils 0.8 thou/uL (0.0-0.7); #Lymphocytes 1.7 thou/uL (1.20-3.40); #Monocytes 1.4 thou/uL (0.11-0.59); #Neutrophils 9.8 thou/uL (1.40-6.50); %Basophils 0.3 % (0.0-1.0); %Eosinophils 5.5 % (0.0-10.0); %Lymphocytes 12.4 % (21.0-51.0); %Monocytes 10.4 % (0.0-10.0); %Neutrophils 71.4 % (42.0-75.0); Hemoglobin 9.6 g/dL (12.0-16.0); Mean Corpuscular HGB CONC 30.7 g/dL (32.0-36.0); Mean Corpuscular Hemoglobin 29.5 pg (27.0-31.0); Mean Corpuscular Volume 96.2 fL (78.0-98.0); Mean Platelet Volume 9.1 fL (7.4-10.4); Platelet Count 315 thou/uL (130-400); RBC Distribution Width 14.9 % (11.5-14.5); RBC Morphology Normal; Red Blood Cell (RBC) Count 3.26 mill/uL (4.20-5.40); White Blood Cell (WBC) Count 13.7 thou/uL (4.8-10.8)
[2018-09-13 06:22] LABS: Anion Gap 15 mmol/L (10-20); BUN (Urea Nitrogen) 16 mg/dL (7.0-18.7); Calc. Creatinine Clearance 78 mL/min (70-130); Calcium 8.8 mg/dL (7.8-10.44); Carbon Dioxide 22 mmol/L (22-29); Chloride 103 mmol/L (98-107); Estimated GFR-MDRD 45; Glucose 94 mg/dL (70-105); Magnesium 1.6 mg/dL (1.6-2.6); Phosphorus 4.2 mg/dL (2.3-4.7); Potassium 4.1 mmol/L (3.5-5.1); Sodium 136 mmol/L (136-145)
[2018-09-13] MEDS: Enoxaparin Sodium 30 MG/0.3 ML SYRINGE SC SCH ×2 (08:59→20:38)
[2018-09-13] MEDS: Senokot 8.6 MG TAB PO SCH ×2 (09:00→20:38)
[2018-09-13] MEDS: Polyethylene Glycol 3350 17 GM Packet PO SCH (09:01)
[2018-09-13] MEDS: Metoprolol Tartrate 50 MG TAB PO SCH ×4 (09:12→20:39)
[2018-09-13] MEDS: FLUoxetine HCl 20 MG CAP PO SCH (10:44)
[2018-09-13] MEDS: Famotidine 20 MG TAB PO SCH ×2 (10:44→20:38)
[2018-09-13] MEDS: Lisinopril 20 MG TAB PO SCH ×2 (10:45→20:37)
[2018-09-13] MEDS ORDERED: Fentanyl 100 MCG/2 ML VIAL ONE ×5 (11:19→14:30)
[2018-09-13] MEDS ORDERED: Midazolam HCl 2 mg/2 ml Vial ONE ×2 (11:19→12:13)
[2018-09-13] MEDS ORDERED: Dexamethasone 20 MG/5 ML VIAL ONE (13:37)
[2018-09-13] MEDS ORDERED: PHENYLEPHRINE-NS 100 MCG/ML 10 ML SYRINGE ONE (13:37)
[2018-09-13] MEDS ORDERED: Lidocaine 1% PF 5 ML VIAL ONE (13:37)
[2018-09-13] MEDS ORDERED: Ketorolac Tromethamine 30 MG/ML VIAL ONE (13:37)
[2018-09-13] MEDS ORDERED: Ondansetron PF 4 MG/2 ML Vial ONE (13:37)
[2018-09-13] MEDS ORDERED: Rocuronium Bromide 10 MG/ML (10ML VIAL) ONE (13:37)
[2018-09-13] MEDS ORDERED: PROPOFOL 200 MG/20 ML VIAL ONE (13:37)
[2018-09-13] MEDS ORDERED: Glycopyrrolate 0.2 MG/ML 5 ML SYRINGE ONE (13:37)
[2018-09-13] MEDS ORDERED: Ondansetron HCl/PF 4 MG/2 ML Vial IVP PRN (14:05)
[2018-09-13] MEDS ORDERED: Promethazine HCl 25 MG/ML VIAL SLOW IVP PRN (14:05)
[2018-09-13] MEDS ORDERED: Promethazine HCl 25 MG/ML VIAL IM PRN (14:05)
[2018-09-13] MEDS: traMADol HCl 50 MG TAB PO PRN ×2 (15:38→23:18)
--- NOTE | 2018-09-13 16:24 | RAD ---
THREE VIEWS OF THE RIGHT CALCANEUS: 09/13/18 COMPARISON: CT of the right ankle 09/08/18. HISTORY: Calcaneal fracture. FINDINGS/IMPRESSION: Multiple limited intraoperative fluoroscopic views of the right calcaneus were submitted for interpre tation. The patient is status post plate and screw fixation of the comminuted calcaneal fracture. POS: EMELINA
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
[2018-09-13] MEDS: CEFAZOLIN 2 GM in Premix Bag 1 BAG IVPB SCH (20:37)
[2018-09-14] MEDS: Acetaminophen 500 MG TAB PO SCH ×4 (03:45→20:20)
[2018-09-14] MEDS: CEFAZOLIN 2 GM in Premix Bag 1 BAG IVPB SCH (03:45)
[2018-09-14 05:36] LABS: Anion Gap 18 mmol/L (10-20); BUN (Urea Nitrogen) 18 mg/dL (7.0-18.7); Calc. Creatinine Clearance 71 mL/min (70-130); Calcium 8.1 mg/dL (7.8-10.44); Carbon Dioxide 22 mmol/L (22-29); Chloride 103 mmol/L (98-107); Estimated GFR-MDRD 40; Glucose 134 mg/dL (70-105); Magnesium 1.4 mg/dL (1.6-2.6); Phosphorus 3.8 mg/dL (2.3-4.7); Potassium 4.6 mmol/L (3.5-5.1); Sodium 138 mmol/L (136-145)
[2018-09-14 05:42] LABS: Band 5 % (5-11); Lymphocytes 11 % (21-51); MDiff Complete? YES; Mean Corpuscular HGB CONC 32.3 g/dL (32.0-36.0); Mean Corpuscular Hemoglobin 30.5 pg (27.0-31.0); Mean Corpuscular Volume 94.6 fL (78.0-98.0); Monocytes 11 % (0-10); Myelocyte 1 % (0-0); Neutrophil 72 % (42-75); Platelet Count 419 thou/uL (130-400); RBC Distribution Width 14.8 % (11.5-14.5); Red Blood Cell (RBC) Count 2.93 mill/uL (4.20-5.40); White Blood Cell (WBC) Count 18.4 thou/uL (4.8-10.8)
[2018-09-14] MEDS ORDERED: Sodium Chloride 0.9% 500 ML IV SCH (07:30)
[2018-09-14] MEDS ORDERED: Magnesium 2 GM/50 ML 2 GM in Premix Bag 1 BAG IVPB SCH (07:30)
[2018-09-14] MEDS: traMADol HCl 50 MG TAB PO PRN ×2 (08:32→14:57)
[2018-09-14] MEDS: Lisinopril 20 MG TAB PO SCH ×2 (08:34→20:21)
[2018-09-14] MEDS: FLUoxetine HCl 20 MG CAP PO SCH (08:35)
[2018-09-14] MEDS: Famotidine 20 MG TAB PO SCH ×2 (08:36→20:21)
[2018-09-14] MEDS: Senokot 8.6 MG TAB PO SCH ×2 (08:36→20:21)
[2018-09-14] MEDS: Metoprolol Tartrate 50 MG TAB PO SCH (08:36)
[2018-09-14] MEDS: Enoxaparin Sodium 30 MG/0.3 ML SYRINGE SC SCH ×2 (08:37→20:20)
[2018-09-14] MEDS: Polyethylene Glycol 3350 17 GM Packet PO SCH (08:37)
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
[2018-09-14] MEDS: Metoprolol Tartrate 100 MG TAB PO SCH (20:21)
[2018-09-15] MEDS: traMADol HCl 50 MG TAB PO PRN (00:43)
[2018-09-15] MEDS: Acetaminophen 500 MG TAB PO SCH ×2 (03:14→09:49)
[2018-09-15 05:43] LABS: Anion Gap 14 mmol/L (10-20); BUN (Urea Nitrogen) 16 mg/dL (7.0-18.7); Calc. Creatinine Clearance 77 mL/min (70-130); Calcium 8.2 mg/dL (7.8-10.44); Carbon Dioxide 24 mmol/L (22-29); Chloride 103 mmol/L (98-107); Estimated GFR-MDRD 47; Glucose 87 mg/dL (70-105); Magnesium 1.7 mg/dL (1.6-2.6); Phosphorus 3.6 mg/dL (2.3-4.7); Potassium 4.3 mmol/L (3.5-5.1); Sodium 137 mmol/L (136-145)
[2018-09-15 06:19] VITALS: BMI 33.1
[2018-09-15] MEDS: Ondansetron PF 4 MG/2 ML Vial IVP PRN (06:27)
[2018-09-15 06:49] VITALS: TEMP 98.2
[2018-09-15] MEDS ORDERED: Magnesium 2 GM/50 ML 2 GM in Premix Bag 1 BAG IVPB SCH (07:45)
[2018-09-15] MEDS ORDERED: Lisinopril 20 MG TAB PO SCH (09:00)
[2018-09-15] MEDS: Metoprolol Tartrate 100 MG TAB PO SCH (09:45)
[2018-09-15] MEDS: Senokot 8.6 MG TAB PO SCH (09:45)
[2018-09-15] MEDS: Famotidine 20 MG TAB PO SCH (09:45)
[2018-09-15] MEDS: FLUoxetine HCl 20 MG CAP PO SCH (09:46)
[2018-09-15] MEDS: Polyethylene Glycol 3350 17 GM Packet PO SCH (09:46)
[2018-09-15] MEDS: Enoxaparin Sodium 30 MG/0.3 ML SYRINGE SC SCH (09:47)
[2018-09-15 09:55] VITALS: BP 155/67
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
== END 2018-09-15 12:55 | disposition home or self-care (01) | DRG 405 ==
LOC: ERS 21:06 → SDC/OP 22:29 → CCU 22:32 → MERGE 22:32 → CCU 23:38 → SURG A 09-08 15:41
PROVIDERS: ADMIT Specialist; ATTEND Specialist
PROC: 0FB10ZZ Excision of Right Lobe Liver, Open Approach (ICD-10-PCS; principal; 2018-08-31)
PROC: 0FQ00ZZ Repair Liver, Open Approach (ICD-10-PCS; 2018-08-31)
PROC: 30243L1 Transfusion of Nonautologous Fresh Plasma into Central Vein, Percutaneous Approach (ICD-10-PCS; 2018-08-31)
PROC: 30243N1 Transfusion of Nonautologous Red Blood Cells into Central Vein, Percutaneous Approach (ICD-10-PCS; 2018-08-31)
PROC: 30243R1 Transfusion of Nonautologous Platelets into Central Vein, Percutaneous Approach (ICD-10-PCS; 2018-08-31)
PROC: 30243M1 Transfusion of Nonautologous Plasma Cryoprecipitate into Central Vein, Percutaneous Approach (ICD-10-PCS; 2018-08-31)
PROC: 3E043XZ Introduction of Vasopressor into Central Vein, Percutaneous Approach (ICD-10-PCS; 2018-08-31)
PROC: 02H633Z Insertion of Infusion Device into Right Atrium, Percutaneous Approach (ICD-10-PCS; 2018-08-31)
PROC: 5A1955Z Respiratory Ventilation, Greater than 96 Consecutive Hours (ICD-10-PCS; 2018-08-31)
PROC: 0BH17EZ Insertion of Endotracheal Airway into Trachea, Via Natural or Artificial Opening (ICD-10-PCS; 2018-08-31)
PROC: 0WPG0YZ Removal of Other Device from Peritoneal Cavity, Open Approach (ICD-10-PCS; 2018-09-02)
PROC: 2W13X6Z Compression of Abdominal Wall using Pressure Dressing (ICD-10-PCS; 2018-09-02)
PROC: 0WJG0ZZ Inspection of Peritoneal Cavity, Open Approach (ICD-10-PCS; 2018-09-04)
PROC: 0QSL04Z Reposition Right Tarsal with Internal Fixation Device, Open Approach (ICD-10-PCS; 2018-09-13)
DX: S36.116A Major laceration of liver, initial encounter (principal); S36.031A Moderate laceration of spleen, initial encounter; J96.90 Respiratory failure, unspecified, unspecified whether with hypoxia or hypercapnia; R57.8 Other shock; J69.0 Pneumonitis due to inhalation of food and vomit; N17.9 Acute kidney failure, unspecified; D62 Acute posthemorrhagic anemia; E87.2 Acidosis; E83.42 Hypomagnesemia; B95.2 Enterococcus as the cause of diseases classified elsewhere; S92.061A Displaced intraarticular fracture of right calcaneus, initial encounter for closed fracture; S92.251A Displaced fracture of navicular [scaphoid] of right foot, initial encounter for closed fracture; S92.224A Nondisplaced fracture of lateral cuneiform of right foot, initial encounter for closed fracture; S82.54XA Nondisplaced fracture of medial malleolus of right tibia, initial encounter for closed fracture; I10 Essential (primary) hypertension; E87.6 Hypokalemia; F10.129 Alcohol abuse with intoxication, unspecified; Y90.6 Blood alcohol level of 120-199 mg/100 ml; R40.2411 Glasgow coma scale score 13-15, in the field [EMT or ambulance]; E66.9 Obesity, unspecified; S93.491A Sprain of other ligament of right ankle, initial encounter; Z68.33 Body mass index [BMI] 33.0-33.9, adult; V43.52XA Car driver injured in collision with other type car in traffic accident, initial encounter; Y92.410 Unspecified street and highway as the place of occurrence of the external cause
CPT/HCPCS: 31500; 36415; 36416; 36430; 51702; 70450; 71045; 71260; 72125; 74177; 76000; 80048; 80053; 80076; 80202; 80306; 80307; 81001; 81003; 81015; 82533; 82805; 83605; 83735; 84100; 84703; 85007; 85014; 85018; 85025; 85027; 85384; 85610; 85730; 86850; 86900; 86901; 87040; 87070; 87077; 87086; 87149; 87186; 87205; 90715; 94002; 94003; 96365; 96374; 99292; C1713; G0390; J0131; J0171; J0360; J0670; J1100; J1630; J1644; J1650; J1720; J1815; J1885; J1940; J2001; J2060; J2250; J2270; J2370; J2405; J2543; J2704; J3010; J3370; J3475; J3480; J3490; J7050; J7070; P9012; P9016; P9035; P9045; P9059; Q9966; S0028

== ENCOUNTER 2018-09-25 06:53 | Emergency (ER) | payer OTHER, SELFPAY ==
[2018-09-25 07:59] LABS: Bilirubin Negative (Negative); Blood, Urine Large (Negative); Clarity CLOUDY (Clear); Glucose, Urine (Dipstick) Negative (Negative); Leukocyte Small (Negative); Nitrite Negative (Negative); Protein, Urine (Dipstick) 100 mg/dL (Neg-Trace); Specific Gravity, Urine 1.019 (1.002-1.036); Urobilinogen 0.2 mg/dL (0.2-1.0)
[2018-09-25 08:00] LABS: Urine Culture Reflex No No
[2018-09-25 08:58] LABS: Pregnancy Test - Urine (BHCG) Negative (Negative); Pregu Control Background? CLEAR/WHITE (CLR/WHITE); Pregu Control Bar Appear? YES (CONTROL BAR); Specific Gravity 1.019 (1.002-1.036)
[2018-09-25] MEDS ORDERED: Ketorolac Tromethamine 60 MG/2 ML VIAL ONE (09:10)
[2018-09-25 10:00] LABS: RBC/HPF GREATER THAN 50-TNTC HPF (0-3); Squamous Epithelial 0-3 HPF (0-3)
[2018-09-25 10:01] LABS: Bacteria/HPF None Seen HPF (None Seen); Hyaline Casts/LPF 7-10 HYALINE CAST LPF (0-3 Hyaline)
== END 2018-09-25 11:00 | disposition home or self-care (01) ==
LOC: ERS 06:53
DX: N39.0 Urinary tract infection, site not specified (principal); I10 Essential (primary) hypertension; Z79.899 Other long term (current) drug therapy
CPT/HCPCS: 81003; 81015; 81025; 87086; 96372; J1885

== ENCOUNTER 2019-06-14 12:18 | Inpatient (IN) | payer MEDICAID, OTHER, SELFPAY ==
[2019-06-14 13:47] LABS: #Basophils 0.1 thou/uL (0.0-0.2); #Eosinphils 0.2 thou/uL (0.0-0.7); #Lymphocytes 1.9 thou/uL (1.20-3.40); #Monocytes 0.9 thou/uL (0.11-0.59); #Neutrophils 10.7 thou/uL (1.40-6.50); %Basophils 0.5 % (0.0-1.0); %Eosinophils 1.4 % (0.0-10.0); %Lymphocytes 13.6 % (21.0-51.0); %Monocytes 6.7 % (0.0-10.0); %Neutrophils 77.8 % (42.0-75.0); Hemoglobin 12.8 g/dL (12.0-16.0); Mean Corpuscular HGB CONC 33.7 g/dL (32.0-36.0); Mean Corpuscular Hemoglobin 34.8 pg (27.0-31.0); Mean Platelet Volume 7.5 fL (7.4-10.4); Platelet Count 315 thou/uL (130-400); RBC Distribution Width 11.3 % (11.5-14.5); Red Blood Cell (RBC) Count 3.67 mill/uL (4.20-5.40); White Blood Cell (WBC) Count 13.8 thou/uL (4.8-10.8)
[2019-06-14 14:06] LABS: BHCG - Serum Negative (NEGATIVE); Pregs Control Background? CLEAR/WHITE (CLR/WHITE); Pregs Control Bar Appear? YES (CONTROL BAR)
[2019-06-14 14:18] LABS: ALT (SGPT) 59 U/L (8-55); AST (SGOT) 30 U/L (5-34); Albumin 4.2 g/dL (3.5-5.0); Alkaline Phosphatase 113 U/L (40-110); Anion Gap 11 mmol/L (10-20); BUN (Urea Nitrogen) 14 mg/dL (7.0-18.7); Bilirubin, Total 0.4 mg/dL (0.2-1.2); Calc. Creatinine Clearance 0 mL/min (70-130); Calcium 9.5 mg/dL (7.8-10.44); Carbon Dioxide 27 mmol/L (22-29); Chloride 104 mmol/L (98-107); Estimated GFR-MDRD 85; Globulin 3.7 g/dL (2.4-3.5); Glucose 106 mg/dL (70-105); Lipase 13 U/L (8-78); Potassium 4.3 mmol/L (3.5-5.1); Protein, Total 7.9 g/dL (6.0-8.3); Sodium 138 mmol/L (136-145)
[2019-06-14 14:19] LABS: Bilirubin Negative (Negative); Blood, Urine Trace (Negative); Clarity Clear (Clear); Glucose, Urine (Dipstick) Normal (Negative); Leukocyte Negative Leu/uL (Negative); Nitrite Negative (Negative); Protein, Urine (Dipstick) Negative (Neg-Trace); RBC/HPF 0-3 HPF (0-3); Urobilinogen Normal mg/dL (Less than 2); WBC/HPF 0-3 HPF (0-3)
[2019-06-14 14:20] LABS: Bacteria/HPF 1+ HPF (None Seen)
[2019-06-14] MEDS ORDERED: Iopamidol-370 76% 500 ML 1 ML ONE (15:01)
[2019-06-14] MEDS ORDERED: Morphine 4 MG/ML VIAL ONE ×2 (17:03→18:56)
[2019-06-14] MEDS ORDERED: Ondansetron PF 4 MG/2 ML Vial ONE (17:03)
--- NOTE | 2019-06-14 18:54 | CT ---
CT ABDOMEN AND PELVIS WITH IV CONTRAST: 06/14/19 HISTORY: Abdominal pain. FINDINGS: Comparison made with exam of 07/16/18. There is minimal dependent change in the right lung base. The patient is post cholecystectomy. The li priscilla, spleen, pancreas, adrenal glands and kidneys are normal. A normal appearing appendix is seen. Th ere is colonic diverticulosis without diverticulitis. There is segmental thickening of a loop of smal l bowel in the mid abdomen with surrounding inflammatory changes and a small focus containing free ai r. No free fluid or lymphadenopathy is seen. There is no evidence of aneurysmal dilatation of the abd ominal aorta. Uterus is present. No acute osseous abnormalities are seen. There are degenerative jones ges in the lower lumbar spine. IMPRESSION: Segmental small bowel wall thickening with surrounding inflammatory changes and contained perforation . Report was called over the telephone to Rhonda Rizvi NP in the Emergency Room at 6:40 p.m. POS: KRYSTAL
[2019-06-14] MEDS ORDERED: Piperacillin/Tazobactam 3.375 GM VIAL ONE (19:28)
[2019-06-14] MEDS ORDERED: Benzocaine 20% Spray 60 ML CAN ONE (19:29)
[2019-06-14] MEDS ORDERED: Lidocaine Viscous Sol 2% 15 ml UD Cup ONE (19:29)
[2019-06-14] MEDS ORDERED: Pantoprazole 40 MG VIAL ONE (19:58)
[2019-06-14] MEDS ORDERED: Dextrose 50% Abboject 50 ML SYRINGE SLOW IVP PRN (20:20)
[2019-06-14] MEDS ORDERED: hydrALAZINE 20 MG/ML VIAL SLOW IVP PRN (20:20)
[2019-06-14] MEDS ORDERED: Dextrose 5% in Water 1,000 ML IV PRN (20:20)
--- NOTE | 2019-06-14 20:24 | RAD ---
Exam: 1 view abdomen HISTORY: NG tube placement FINDINGS: Nonspecific bowel gas pattern. Nasogastric tube is in the gastric cardia. Consider advancem ent. IMPRESSION: Consider advancing nasogastric tube.
[2019-06-14] MEDS ORDERED: D5 1/2 NS w/20 mEq KCL 1,000 ML IV SCH ×2 (20:30)
[2019-06-14 20:44] LABS: Lactic Acid 0.5 mmol/L (0.5-2.2)
[2019-06-14 20:45] LABS: Magnesium 2.1 mg/dL (1.6-2.6); Phosphorus 3.4 mg/dL (2.3-4.7)
[2019-06-14] MEDS: Morphine 4 MG/ML VIAL SLOW IVP PRN (21:43)
[2019-06-14 21:54] VITALS: BMI 32.3
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
[2019-06-14] MEDS: D5 1/2 NS w/20 mEq KCL 1,000 ML IV SCH (22:50)
[2019-06-14] MEDS: Piperacillin/Tazobactam 3.375 GM in Sodium Chloride 0.9% 100 ML IVPB SCH (23:39)
[2019-06-14] MEDS: Acetaminophen 1,000 MG in Premix Bag 1 BAG IVPB SCH (23:39)
[2019-06-15] MEDS: Morphine 4 MG/ML VIAL SLOW IVP PRN ×3 (05:28→20:17)
[2019-06-15] MEDS: Acetaminophen 1,000 MG in Premix Bag 1 BAG IVPB SCH ×3 (05:33→17:06)
[2019-06-15] MEDS: D5 1/2 NS w/20 mEq KCL 1,000 ML IV SCH ×3 (05:33→14:40)
[2019-06-15] MEDS: Piperacillin/Tazobactam 3.375 GM in Sodium Chloride 0.9% 100 ML IVPB SCH ×4 (05:43→17:06)
[2019-06-15] MEDS: Pantoprazole 40 MG VIAL IVP SCH (08:34)
[2019-06-15] MEDS: Metoprolol Tartrate 100 MG TAB PO SCH ×2 (08:34→21:53)
[2019-06-15] MEDS: Morphine 2 MG/ML SYRINGE SLOW IVP PRN (08:46)
[2019-06-15] MEDS ORDERED: FLU VACC QS2019-20(6MOS UP)/PF 60 MCG/0.5 ML SYRINGE IM ONE (09:00)
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
[2019-06-15] MEDS: Ondansetron PF 4 MG/2 ML Vial IVP PRN ×2 (16:45→20:16)
[2019-06-15] MEDS ORDERED: Promethazine HCl 25 MG/ML VIAL IM PRN (17:20)
[2019-06-16] MEDS: Piperacillin/Tazobactam 3.375 GM in Sodium Chloride 0.9% 100 ML IVPB SCH ×4 (00:35→18:02)
[2019-06-16] MEDS: D5 1/2 NS w/20 mEq KCL 1,000 ML IV SCH ×4 (00:36→20:31)
--- NOTE | 2019-06-16 00:38 | PRG ---
DATE OF SERVICE: 06/15/2019 SUBJECTIVE: The patient was seen this evening, sitting up in bed with no signs of acute distress. NG tube was discontinued today by Dr. Sandoval. The patient is still n.p.o. with IV fluids. She reports her abdominal pain is much better improved. She has not had a bowel movement, but continues to pass flatus. OBJECTIVE: VITAL SIGNS: Temperature 98.1, pulse 75, respirations 20, oxygen saturation 94% on room air, blood pressure 145/84. GENERAL: Well-appearing, middle-aged female, sitting up in bed with no signs of acute distress. PULMONARY: Equal chest rise and fall. No signs of acute respiratory distress. CARDIAC: Regular rate and rhythm. GI: Abdomen is soft, minimally tender in the right upper and epigastric area and nondistended. EXTREMITIES: 2+ pulses in all extremities. Gross motor and sensation are intact. No significant swelling noted. NEUROLOGICAL: GCS is 15. ASSESSMENT: 1. Segmental small bowel perforation that is contained, unclear etiology. 2. History of hypertension. PLAN: Continue n.p.o. status. Continue IV fluids. Continue IV antibiotics. Continue ambulating as much as possible. The patient will be re-evaluated tomorrow for possible advancement of diet. She is not ready for discharge at this time. Job ID: [id number]
[2019-06-16] MEDS: Morphine 2 MG/ML SYRINGE SLOW IVP PRN ×3 (02:34→12:32)
[2019-06-16 06:38] LABS: Anion Gap 12 mmol/L (10-20); BUN (Urea Nitrogen) 6 mg/dL (7.0-18.7); Calc. Creatinine Clearance 106 mL/min (70-130); Calcium 9.2 mg/dL (7.8-10.44); Carbon Dioxide 28 mmol/L (22-29); Chloride 102 mmol/L (98-107); Estimated GFR-MDRD 80; Glucose 93 mg/dL (70-105); Magnesium 2.2 mg/dL (1.6-2.6); Phosphorus 3.4 mg/dL (2.3-4.7); Potassium 4.6 mmol/L (3.5-5.1); Sodium 137 mmol/L (136-145)
[2019-06-16 07:54] LABS: Band 1 % (5-11); Eosinophils 2 % (0-10); Hemoglobin 12.9 g/dL (12.0-16.0); Lymphocytes 15 % (21-51); MDiff Complete? YES; Mean Corpuscular HGB CONC 34.6 g/dL (32.0-36.0); Mean Corpuscular Hemoglobin 35.7 pg (27.0-31.0); Mean Platelet Volume 7.3 fL (7.4-10.4); Monocytes 7 % (0-10); Neutrophil 75 % (42-75); Platelet Count 375 thou/uL (130-400); RBC Distribution Width 11.1 % (11.5-14.5); Red Blood Cell (RBC) Count 3.62 mill/uL (4.20-5.40)
[2019-06-16] MEDS: Metoprolol Tartrate 100 MG TAB PO SCH ×2 (08:22→20:33)
[2019-06-16] MEDS: Pantoprazole 40 MG VIAL IVP SCH (08:22)
[2019-06-16] MEDS: Morphine 4 MG/ML VIAL SLOW IVP PRN (08:22)
[2019-06-16] MEDS: Ondansetron PF 4 MG/2 ML Vial IVP PRN (08:23)
--- NOTE | 2019-06-16 12:46 | PRG ---
DATE OF SERVICE: 06/16/2019 SUBJECTIVE: The patient remains on the surgical floor, patient is sitting up in a hospital chair, in no acute distress. The patient reports that her pain is unchanged at this time. The patient is passing gas but has not had a bowel movement. She denies any nausea or vomiting. OBJECTIVE: VITAL SIGNS: Temperature 98.5, pulse 70, respirations 16, SpO2 of 98% on room air, blood pressure 142/87. GENERAL: Well-appearing, middle-aged female, sitting up in hospital bed, in no acute distress. PULMONARY: Equal chest rise and fall, no respiratory distress. CARDIAC: Regular rate, regular rhythm. GI: Abdomen is soft with minimal tenderness, nondistended, no peritoneal signs. EXTREMITIES: Moves all extremities. Gross motor and sensation are intact. ASSESSMENT: 1. Segmental small bowel perforation that is contained, unclear etiology. 2. History of hypertension. PLAN: Continue n.p.o. status except for medications, sips of water and ice chips. We will continue IV fluids and continue IV antibiotics. We will continue to have patient ambulate as much as possible. The patient was examined by Dr. Chavez during morning rounds. Job ID: [id number]
[2019-06-16] MEDS ORDERED: traMADol HCl 50 MG TAB PO PRN ×2 (15:59→19:01)
[2019-06-16] MEDS: traMADol HCl 50 MG TAB PO PRN (19:42)
[2019-06-16] MEDS ORDERED: Enoxaparin Sodium 40 MG/0.4 ML SYRINGE SC SCH (21:00)
[2019-06-16] MEDS ORDERED: traZODone HCl 50 MG TAB PO SCH (21:00)
[2019-06-16] MEDS ORDERED: FLUoxetine HCl 20 MG CAP PO SCH (21:00)
[2019-06-17] MEDS: traMADol HCl 50 MG TAB PO PRN ×2 (00:41→04:44)
[2019-06-17] MEDS: Piperacillin/Tazobactam 3.375 GM in Sodium Chloride 0.9% 100 ML IVPB SCH ×2 (00:42→05:50)
--- NOTE | 2019-06-17 01:50 | PRG ---
DATE OF SERVICE: 06/16/2019 SUBJECTIVE: The patient was seen this evening, lying in bed, resting comfortably with no signs of acute distress. The patient reports passing a lot of flatus this evening. She was advanced to ice chips today as she tolerated that well. She was also restarted on all of her home medications and discontinued IV morphine. OBJECTIVE: VITAL SIGNS: Temperature 97.8, pulse 68, respirations 18, oxygen saturation 99% on room air, blood pressure 136/72. GENERAL: Well-appearing middle-aged female, sitting up in bed with no signs of acute distress. PULMONARY: Equal chest rise and fall. Clear breath sounds bilaterally. No signs of acute respiratory distress. CARDIAC: Regular rate and rhythm. No murmurs, gallops, or rubs. GI: Abdomen is soft, nontender, nondistended. EXTREMITIES: 2+ pulses in all extremities. No significant swelling noted. Gross motor and sensation are intact. NEUROLOGICAL: GCS is 15. ASSESSMENT: 1. Segmental small bowel contained perforation, improved. 2. History of hypertension. 3. Posttraumatic stress disorder. PLAN: Continue current diet and pain regimen. Restart all home medications. Continue n.p.o. with ice chips. Continue IV fluids. We will start the patient on Lovenox. Continue ambulating. Job ID: [id number]
[2019-06-17] MEDS: D5 1/2 NS w/20 mEq KCL 1,000 ML IV SCH (05:51)
[2019-06-17] MEDS ORDERED: Lisinopril 20 MG TAB PO SCH (09:00)
[2019-06-17] MEDS: Pantoprazole 40 MG VIAL IVP SCH (09:02)
[2019-06-17] MEDS: Metoprolol Tartrate 100 MG TAB PO SCH (09:02)
[2019-06-17] MEDS ORDERED: Acetaminophen 500 MG TAB PO SCH (11:00)
[2019-06-17 13:20] VITALS: BP 110/75; TEMP 98.4
[2019-06-17] MEDS ORDERED: metroNIDAZOLE 500 MG TAB PO SCH (15:00)
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
== END 2019-06-17 12:04 | disposition home or self-care (01) | DRG 395 ==
LOC: ERS 12:18 → OBSVTOIN 21:26 → SURG B 21:26
PROVIDERS: ADMIT Surgery; ATTEND Surgery
DX: K63.1 Perforation of intestine (nontraumatic) (principal); I10 Essential (primary) hypertension; G89.29 Other chronic pain; F43.10 Post-traumatic stress disorder, unspecified; Z23 Encounter for immunization; Z79.899 Other long term (current) drug therapy; Z90.89 Acquired absence of other organs
CPT/HCPCS: 36415; 74018; 74177; 80048; 80053; 81003; 81015; 83605; 83690; 83735; 84100; 84703; 85007; 85025; 85027; 87804; 90471; 90686; 96365; 96367; 96375; 96376; C9113; G0008; J0131; J1650; J2270; J2405; J2543; J3490; Q9967

== ENCOUNTER 2019-06-18 05:38 | Observation (INO) | payer OTHER ==
[2019-06-18] MEDS ORDERED: Ondansetron PF 4 MG/2 ML Vial ONE (06:07)
[2019-06-18] MEDS ORDERED: Morphine 4 MG/ML VIAL ONE ×4 (06:07→15:15)
[2019-06-18 06:19] LABS: #Eosinphils 0.2 thou/uL (0.0-0.7); #Lymphocytes 1.5 thou/uL (1.20-3.40); #Monocytes 0.6 thou/uL (0.11-0.59); #Neutrophils 6.1 thou/uL (1.40-6.50); %Basophils 0.5 % (0.0-1.0); %Eosinophils 2.5 % (0.0-10.0); %Lymphocytes 17.8 % (21.0-51.0); %Monocytes 6.5 % (0.0-10.0); %Neutrophils 72.7 % (42.0-75.0); Hemoglobin 12.1 g/dL (12.0-16.0); Mean Corpuscular HGB CONC 34.4 g/dL (32.0-36.0); Mean Corpuscular Hemoglobin 34.8 pg (27.0-31.0); Mean Platelet Volume 7.2 fL (7.4-10.4); Platelet Count 351 thou/uL (130-400); RBC Distribution Width 10.9 % (11.5-14.5); Red Blood Cell (RBC) Count 3.46 mill/uL (4.20-5.40); White Blood Cell (WBC) Count 8.4 thou/uL (4.8-10.8)
[2019-06-18 06:35] LABS: ALT (SGPT) 79 U/L (8-55); AST (SGOT) 27 U/L (5-34); Albumin 3.9 g/dL (3.5-5.0); Alkaline Phosphatase 157 U/L (40-110); Anion Gap 11 mmol/L (10-20); BUN (Urea Nitrogen) 10 mg/dL (7.0-18.7); Bilirubin, Total 0.3 mg/dL (0.2-1.2); Calc. Creatinine Clearance 0 mL/min (70-130); Carbon Dioxide 29 mmol/L (22-29); Chloride 101 mmol/L (98-107); Estimated GFR-MDRD 81; Globulin 3.8 g/dL (2.4-3.5); Glucose 115 mg/dL (70-105); Lipase 86 U/L (8-78); Potassium 4.1 mmol/L (3.5-5.1); Protein, Total 7.7 g/dL (6.0-8.3); Sodium 137 mmol/L (136-145)
[2019-06-18 08:31] LABS: Bacteria/HPF None Seen HPF (None Seen); Bilirubin Negative (Negative); Blood, Urine Negative (Negative); Clarity Clear (Clear); Glucose, Urine (Dipstick) Normal (Negative); Leukocyte 25 Leu/uL (Negative); Nitrite Negative (Negative); Protein, Urine (Dipstick) Negative (Neg-Trace); RBC/HPF 0-3 HPF (0-3); Urobilinogen Normal mg/dL (Less than 2)
[2019-06-18 08:33] LABS: Pregnancy Test - Urine (BHCG) Negative (Negative); Pregu Control Background? CLEAR/WHITE (CLR/WHITE); Pregu Control Bar Appear? YES (CONTROL BAR); Specific Gravity 1.014 (1.002-1.036)
[2019-06-18 08:38] LABS: Sperm/HPF Rare HPF (None Seen)
--- NOTE | 2019-06-18 08:42 | CT ---
EXAM: CT ABDOMEN AND PELVIS HISTORY: Abdominal pain. Patient has been diagnosed with perforated small intestine and discharged home after pain improved. COMPARISON: 06/14/2019, Procedure: Multiple contiguous axial images were obtained and a CT of the abdomen and pelvis with IV contrast. C oronal reformats were performed. FINDINGS: Lower Chest: within normal limits. Vessels: Normal caliber aorta. No periaortic fat stranding. Heart: Normal heart size. No significant pericardial fluid. Abdomen: Portal vein:Patent. Gallbladder: Surgically absent. Liver: Mild nodularity suggesting cirrhotic change. Pancreas: within normal limits. Spleen: Normal enhancement. Splenic varices are noted. Adrenals: within normal limits. Kidneys: Symmetric enhancement. No obstructive uropathy. Peritoneum: Persistent stranding of the anterior abdominal mesentery. Small focus of intramesenteric air does remain. There is persistent bowel wall thickening and inflammatory change involving a short segment of small bowel. No evidence of a drainable abscess. When compared to the previous exami nation, no significant interval change. Bowel: No evidence of bowel obstruction. Unremarkable ileocecal junction. Unremarkable colon. Normal caliber appendix. Inflammatory change involving a short segment of small bowel as described above. Mesentery and Retroperitoneum: Mildly enlarged right lower quadrant and right abdominal mesenteric ly mph nodes likely representing reactive change. Abdominal Wall: within normal limits. Pelvis: Reproductive Organs: Reproductive organs are unremarkable. Pelvis: No mass, lymphadenopathy, free air or free fluid. Bladder: within normal limits. Bones: within normal limits. IMPRESSION: Redemonstration of inflammatory change involving a short segment of small bowel. Small focus of extra luminal air is noted, compatible with contained perforation. Reactive lymphadenopathy is identified. When compared to the previous examination, no significant interval change. Transcribed Date/Time: 06/18/2019 9:02 AM
[2019-06-18] MEDS ORDERED: Piperacillin/Tazobactam 4.5 GM VIAL ONE (09:33)
[2019-06-18] MEDS ORDERED: Iopamidol 370 76% 50 ML VIAL FS ONE (10:59)
[2019-06-18] MEDS ORDERED: Iopamidol-370 76% 500 ML 1 ML ONE (10:59)
[2019-06-18] MEDS ORDERED: Ondansetron ODT 4 MG TAB PO PRN (11:02)
[2019-06-18] MEDS ORDERED: Dextrose 50% Abboject 50 ML SYRINGE SLOW IVP PRN (11:02)
[2019-06-18] MEDS ORDERED: Ondansetron PF 4 MG/2 ML Vial IVP PRN (11:02)
[2019-06-18] MEDS ORDERED: Morphine 2 MG/ML SYRINGE SLOW IVP PRN (11:02)
[2019-06-18] MEDS ORDERED: Dextrose 5% in Water 1,000 ML IV PRN (11:02)
[2019-06-18] MEDS ORDERED: hydrALAZINE 20 MG/ML VIAL SLOW IVP PRN (11:02)
[2019-06-18] MEDS ORDERED: Acetaminophen 1,000 MG in Premix Bag 1 BAG IVPB SCH (12:00)
[2019-06-18] MEDS: Sodium Chloride 0.9% 1,000 ML IV SCH (16:19)
[2019-06-18] MEDS: Piperacillin/Tazobactam 3.375 GM in Sodium Chloride 0.9% 100 ML IVPB SCH ×2 (16:20→21:31)
[2019-06-18] MEDS: Acetaminophen 1,000 MG in Premix Bag 1 BAG IVPB SCH (20:22)
[2019-06-18] MEDS: Morphine 4 MG/ML VIAL SLOW IVP PRN (21:30)
[2019-06-18] MEDS: Famotidine/PF 20 mg/2ml Vial SLOW IVP SCH (21:30)
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
[2019-06-19] MEDS: Piperacillin/Tazobactam 3.375 GM in Sodium Chloride 0.9% 100 ML IVPB SCH ×4 (03:12→20:58)
[2019-06-19] MEDS: Acetaminophen 1,000 MG in Premix Bag 1 BAG IVPB SCH ×2 (03:12→11:11)
[2019-06-19] MEDS: Sodium Chloride 0.9% 1,000 ML IV SCH (03:13)
[2019-06-19] MEDS: Morphine 4 MG/ML VIAL SLOW IVP PRN (06:05)
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
[2019-06-19] MEDS ORDERED: Cyclobenzaprine 10 MG TAB PO PRN (11:16)
[2019-06-19] MEDS ORDERED: traMADol HCl 50 MG TAB PO PRN (11:16)
[2019-06-19 11:23] LABS: #Basophils 0.1 thou/uL (0.0-0.2); #Eosinphils 0.3 thou/uL (0.0-0.7); #Lymphocytes 1.8 thou/uL (1.20-3.40); #Monocytes 0.3 thou/uL (0.11-0.59); #Neutrophils 5.6 thou/uL (1.40-6.50); %Basophils 0.8 % (0.0-1.0); %Eosinophils 3.2 % (0.0-10.0); %Monocytes 3.4 % (0.0-10.0); %Neutrophils 69.7 % (42.0-75.0); Hemoglobin 12.6 g/dL (12.0-16.0); Mean Corpuscular HGB CONC 34.7 g/dL (32.0-36.0); Mean Corpuscular Hemoglobin 35.4 pg (27.0-31.0); Mean Platelet Volume 7.3 fL (7.4-10.4); Platelet Count 380 thou/uL (130-400); RBC Distribution Width 10.9 % (11.5-14.5); Red Blood Cell (RBC) Count 3.56 mill/uL (4.20-5.40)
[2019-06-19 11:27] LABS: Anion Gap 12 mmol/L (10-20); BUN (Urea Nitrogen) 6 mg/dL (7.0-18.7); CRP (Inflammatory) 4.21 mg/dL (= or < 0.5); Calc. Creatinine Clearance 114 mL/min (70-130); Calcium 9.4 mg/dL (7.8-10.44); Carbon Dioxide 26 mmol/L (22-29); Chloride 103 mmol/L (98-107); Estimated GFR-MDRD 83; Glucose 110 mg/dL (70-105); Magnesium 2.1 mg/dL (1.6-2.6); Phosphorus 3.1 mg/dL (2.3-4.7); Potassium 3.8 mmol/L (3.5-5.1); Sodium 137 mmol/L (136-145)
[2019-06-19] MEDS: Acetaminophen 325 MG TAB PO SCH ×2 (12:00→17:45)
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
[2019-06-19] MEDS ORDERED: Lisinopril 20 MG TAB PO SCH (12:30)
[2019-06-19] MEDS: traMADol HCl 50 MG TAB PO PRN ×2 (12:35→19:26)
[2019-06-19] MEDS: Famotidine/PF 20 mg/2ml Vial SLOW IVP SCH ×2 (12:36→20:45)
[2019-06-19] MEDS: Ibuprofen 800 MG TAB PO SCH ×2 (17:48→20:45)
[2019-06-19] MEDS ORDERED: FLUoxetine HCl 20 MG CAP PO SCH (21:00)
[2019-06-19] MEDS ORDERED: traZODone HCl 50 MG TAB PO SCH (21:00)
[2019-06-20] MEDS: Acetaminophen 325 MG TAB PO SCH ×3 (00:11→14:38)
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
[2019-06-20] MEDS: traMADol HCl 50 MG TAB PO PRN (02:55)
[2019-06-20] MEDS: Piperacillin/Tazobactam 3.375 GM in Sodium Chloride 0.9% 100 ML IVPB SCH ×2 (03:00→10:21)
[2019-06-20] MEDS: Ibuprofen 800 MG TAB PO SCH ×2 (05:28→14:38)
[2019-06-20 06:21] LABS: ALT (SGPT) 54 U/L (8-55); AST (SGOT) 23 U/L (5-34); Albumin 3.8 g/dL (3.5-5.0); Alkaline Phosphatase 156 U/L (40-110); Bilirubin, Direct 0.1 mg/dL (0.1-0.3); Bilirubin, Total 0.2 mg/dL (0.2-1.2); Protein, Total 7.4 g/dL (6.0-8.3)
[2019-06-20 06:22] LABS: Hemoglobin 12.1 g/dL (12.0-16.0); Mean Corpuscular Hemoglobin 34.8 pg (27.0-31.0); Mean Platelet Volume 7.5 fL (7.4-10.4); Platelet Count 387 thou/uL (130-400); RBC Distribution Width 11.1 % (11.5-14.5); Red Blood Cell (RBC) Count 3.47 mill/uL (4.20-5.40); White Blood Cell (WBC) Count 8.6 thou/uL (4.8-10.8)
[2019-06-20 06:24] LABS: Anion Gap 11 mmol/L (10-20); BUN (Urea Nitrogen) 12 mg/dL (7.0-18.7); Calc. Creatinine Clearance 119 mL/min (70-130); Calcium 9.2 mg/dL (7.8-10.44); Carbon Dioxide 26 mmol/L (22-29); Chloride 104 mmol/L (98-107); Estimated GFR-MDRD 87; Glucose 114 mg/dL (70-105); Lipase 132 U/L (8-78); Magnesium 2.1 mg/dL (1.6-2.6); Phosphorus 3.4 mg/dL (2.3-4.7); Potassium 3.9 mmol/L (3.5-5.1); Sodium 137 mmol/L (136-145)
[2019-06-20 06:36] LABS: Band 7 % (5-11); Eosinophils 1 % (0-10); Lymphocytes 25 % (21-51); MDiff Complete? YES; Monocytes 6 % (0-10); Neutrophil 61 % (42-75)
[2019-06-20] MEDS ORDERED: Folic Acid 1 MG TAB PO SCH (09:00)
[2019-06-20] MEDS ORDERED: Lisinopril 20 MG TAB PO SCH (09:00)
[2019-06-20] MEDS ORDERED: Thiamine 100 MG TAB PO SCH (09:00)
[2019-06-20] MEDS ORDERED: Multivitamin W/ Minerals 1 TAB PO SCH (09:00)
[2019-06-20] MEDS: Famotidine/PF 20 mg/2ml Vial SLOW IVP SCH (10:22)
[2019-06-20 12:26] VITALS: BP 136/80; TEMP 98.1
--- NOTE | 2019-06-21 05:25 | DIS ---
DATE OF ADMISSION: 06/18/2019 DATE OF DISCHARGE: 06/20/2019 ADMISSION DIAGNOSIS: Segmental small bowel contained perforation with small amount of extraluminal air. CONSULTATIONS: None. PROCEDURES: None. HOSPITAL COURSE: The patient is a 43-year-old woman, who presented to the emergency department complaining of abdominal pain, nausea, and bloating. She had recently been admitted to the facility with the same diagnosis. She was on IV antibiotics for 3 days and then was discharged home on Levaquin and Flagyl. The patient returned the following day, complaining of significant abdominal pain. Her CT exam was essentially unchanged and it was thought that it may be related to alcohol use with her Flagyl. While in the hospital, she was resumed on her antibiotics. First morning, her pain had markedly improved and on day of discharge, she was ambulating with a problem. She was able to get in and out of bed without any difficulty. Her abdominal exam remained benign. She was able to be discharged home. She will continue her Levaquin and Flagyl and Dr. Monroe and the discharge nurse reiterated and reinforced the fact that she cannot drink any alcohol while taking her Flagyl for the next 21 days. The patient will call to schedule an appointment to follow with us in 7 to 10 days or sooner as needed. At the time of discharge, the patient was ambulating without difficulty. Her pain was controlled and she was tolerating a diet. Her bowel function continued. Job ID: [id number]
== END 2019-06-20 14:40 | disposition home or self-care (01) ==
LOC: ERS 05:38 → SURG A 15:39
PROVIDERS: ADMIT Emergency Medicine; ATTEND Emergency Medicine
DX: K63.1 Perforation of intestine (nontraumatic) (principal); I10 Essential (primary) hypertension; F43.10 Post-traumatic stress disorder, unspecified; G89.29 Other chronic pain; Z98.890 Other specified postprocedural states; Z79.899 Other long term (current) drug therapy
CPT/HCPCS: 36415; 74177; 80048; 80053; 80076; 81003; 81015; 81025; 83690; 83735; 84100; 85007; 85025; 85027; 86140; 96361; 96365; 96366; 96375; 96376; G0378; J0131; J0360; J2270; J2405; J2543; J3490; Q9967; S0028

== ENCOUNTER 2020-08-05 08:17 | Outpatient (CLI) | payer OTHER ==
--- NOTE | 2020-08-05 11:07 | MMO ---
Bilateral MAMMO Bilat Screen [facility]. CLINICAL HISTORY: Patient is 44 years old and is seen for screening. The patient has the following family history of breast cancer: mother, malignant (generic). The patient has no personal history of cancer. VIEWS: The views performed were: bilateral craniocaudal and bilateral mediolateral oblique. FILMS COMPARED: The present examination has been compared to a prior imaging study performed at [facility] on 08/01/2019. This study has been interpreted with the assistance of computer-aided detection. MAMMOGRAM FINDINGS: There are scattered fibroglandular densities. Finding 1: There are stable benign appearing calcifications seen in the right breast. Finding 2: There are stable benign appearing densities seen in both breasts. There are no suspicious masses, suspicious calcifications, or new areas of architectural distortion. IMPRESSION: THERE IS NO MAMMOGRAPHIC EVIDENCE OF MALIGNANCY. A ROUTINE FOLLOW-UP MAMMOGRAM IN 1 YEAR IS RECOMMENDED. ACR BI-RADS Category 2 - Benign finding MAMMOGRAPHY NOTE: 1. A negative mammogram report should not delay a biopsy if a dominant of clinically suspicious mass is present. 2. Approximately 10% to 15% of breast cancers are not detected by mammography. 3. Adenosis and dense breasts may obscure an underlying neoplasm. Reported by: GARRET PRESTON MD Electonically Signed: [id number]
== END 2020-08-05 08:18 | disposition home or self-care (01) ==
LOC: BICMAMMO 08:17
PROVIDERS: ATTEND Nurse Practitioner Family
DX: Z12.31 Encounter for screening mammogram for malignant neoplasm of breast (principal); Z80.3 Family history of malignant neoplasm of breast
CPT/HCPCS: 77067

== ENCOUNTER 2020-10-03 11:47 | Outpatient (CLI) | payer OTHER ==
[2020-10-03 14:02] LABS: #Basophils 0.1 10x3/uL (0.0-0.2); #Eosinphils 0.2 10x3/uL (0.0-0.5); #Monocytes 0.7 10x3/uL (0.0-1.1); #Neutrophils 6.2 10x3/uL (1.5-8.4); %Basophils 0.6 % (0.0-2.0); %Eosinophils 2.3 % (0.0-6.0); %Lymphocytes 24.6 % (18.0-47.0); %Monocytes 7.6 % (0.0-10.0); %Neutrophils 64.5 % (40.0-75.0); Hemoglobin 12.8 g/dL (12.0-15.5); Mean Corpuscular HGB CONC 33.7 g/dL (32.0-36.0); Mean Corpuscular Hemoglobin 33.6 pg (27.0-33.0); Mean Corpuscular Volume 99.7 fl (81.6-98.3); Mean Platelet Volume 10.6 fl (7.4-10.4); Platelet Count 323 10x3/uL (150-450); RBC Distribution Width 11.5 % (11.5-14.5); Red Blood Cell (RBC) Count 3.81 10x6/uL (3.90-5.03); White Blood Cell (WBC) Count 9.6 10x3/uL (3.5-10.5)
[2020-10-03 14:05] LABS: BHCG - Serum Negative (NEGATIVE); Pregs Control Background? CLEAR/WHITE (CLR/WHITE); Pregs Control Bar Appear? YES (CONTROL BAR)
[2020-10-03 23:15] LABS: SARS-CoV-2 PCR by NAA Not Detected (NotDetected)
== END 2020-10-03 11:48 | disposition home or self-care (01) ==
LOC: LABBT 11:47
PROVIDERS: ATTEND Orthopaedic Surgery
DX: Z01.812 Encounter for preprocedural laboratory examination (principal); G56.22 Lesion of ulnar nerve, left upper limb; G56.02 Carpal tunnel syndrome, left upper limb; Z20.822 Contact with and (suspected) exposure to COVID-19
CPT/HCPCS: 84703; 85025; 87635; U0003; U0005

== ENCOUNTER 2020-10-07 05:33 | Day surgery (SDC) | payer OTHER ==
[2020-10-03 13:04] VITALS: BMI 36.3
[2020-10-07] MEDS ORDERED: Lidocaine 1% w/Epinephrine 1:100K 20 ML VIAL ONE (06:30)
[2020-10-07] MEDS ORDERED: Fentanyl 100 MCG/2 ML VIAL ONE ×2 (06:59→07:16)
[2020-10-07] MEDS ORDERED: Dexamethasone 20 MG/5 ML VIAL ONE (07:24)
[2020-10-07] MEDS ORDERED: PROPOFOL 200 MG/20 ML VIAL ONE (07:24)
[2020-10-07] MEDS ORDERED: Glycopyrrolate 0.2 MG/ML 5 ML SYRINGE ONE (07:24)
[2020-10-07] MEDS ORDERED: Rocuronium Bromide 10 MG/ML (10ML VIAL) ONE (07:24)
[2020-10-07] MEDS ORDERED: PHENYLEPHRINE-NS 100 MCG/ML 10 ML SYRINGE ONE (07:24)
[2020-10-07] MEDS ORDERED: Ondansetron PF 4 MG/2 ML Vial ONE (07:24)
[2020-10-07] MEDS ORDERED: Succinylcholine 200 MG/10 ml SYRINGE FS ONE (07:24)
[2020-10-07] MEDS ORDERED: Albuterol Sulfate HFA (OR ONLY) ONE ×2 (07:24→07:44)
[2020-10-07] MEDS ORDERED: Lidocaine 1% PF 5 ML VIAL ONE (07:24)
[2020-10-07] MEDS ORDERED: HYDROcodone/Acetaminophen 5/325 mg Tablet ONE (09:58)
== END 2020-10-07 11:32 | disposition home or self-care (01) ==
LOC: SDC 05:33
PROVIDERS: ATTEND Orthopaedic Surgery
PROC: 01N50ZZ Release Median Nerve, Open Approach (ICD-10-PCS; principal; 2020-10-07)
PROC: 01N40ZZ Release Ulnar Nerve, Open Approach (ICD-10-PCS; principal; 2020-10-07)
DX: G56.23 Lesion of ulnar nerve, bilateral upper limbs (principal); G56.03 Carpal tunnel syndrome, bilateral upper limbs; I10 Essential (primary) hypertension; Q74.0 Other congenital malformations of upper limb(s), including shoulder girdle; Z79.899 Other long term (current) drug therapy; Z87.891 Personal history of nicotine dependence
CPT/HCPCS: J0690; J1100; J2405; J2704; J3010; J7620

== ENCOUNTER 2021-01-28 11:34 | Day surgery (SDC) | payer OTHER ==
[2021-01-27 13:41] VITALS: BMI 37.3
[2021-01-28] MEDS ORDERED: Acetaminophen 500 MG TAB ONE (13:05)
[2021-01-28 13:50] LABS: Hemoglobin 12.9 g/dL (12.0-16.0); Mean Corpuscular HGB CONC 34.4 g/dL (32.0-36.0); Mean Platelet Volume 7.5 fL (7.4-10.4); Platelet Count 328 thou/uL (130-400); Red Blood Cell (RBC) Count 3.78 mill/uL (4.20-5.40); White Blood Cell (WBC) Count 9.7 thou/uL (4.8-10.8)
[2021-01-28 14:10] LABS: ALT (SGPT) 62 U/L (8-55); AST (SGOT) 57 U/L (5-34); Albumin 3.8 g/dL (3.5-5.0); Alkaline Phosphatase 74 U/L (40-110); Anion Gap 12 mmol/L (10-20); BUN (Urea Nitrogen) 13 mg/dL (7.0-18.7); Bilirubin, Total 0.3 mg/dL (0.2-1.2); Calc. Creatinine Clearance 140 mL/min (70-130); Calcium 8.9 mg/dL (7.8-10.44); Carbon Dioxide 24 mmol/L (22-29); Chloride 104 mmol/L (98-107); Globulin 3.6 g/dL (2.4-3.5); Glucose 90 mg/dL (70-105); Potassium 4.1 mmol/L (3.5-5.1); Protein, Total 7.4 g/dL (6.0-8.3); Sodium 136 mmol/L (136-145)
[2021-01-28 14:23] LABS: Band 5 % (5-11); Eosinophils 3 % (0-10); Lymphocytes 22 % (21-51); MDiff Complete? YES; Monocytes 7 % (0-10); Neutrophil 45 % (42-75); Platelet Morphology Comment Appears Adequate; Polychromasia SLIGHT = 2-3 cells (100X) (0-2/hpf); Reactive Lymphocytes 18 % (0-10)
[2021-01-28] MEDS ORDERED: Lidocaine 1% w/Epinephrine 1:100K 20 ML VIAL ONE (14:55)
[2021-01-28] MEDS ORDERED: Bupivacaine PF 0.5% 30 ML VIAL ONE (14:55)
[2021-01-28] MEDS ORDERED: Bacitracin Zinc Ointment 30 gm TUBE ONE (14:55)
[2021-01-28] MEDS ORDERED: Fentanyl 100 MCG/2 ML VIAL ONE ×3 (14:57→16:19)
[2021-01-28] MEDS ORDERED: Midazolam HCl 2 mg/2 ml Vial ONE (14:57)
[2021-01-28] MEDS ORDERED: PROPOFOL 200 MG/20 ML VIAL ONE (15:12)
[2021-01-28] MEDS ORDERED: PHENYLEPHRINE-NS 100 MCG/ML 10 ML SYRINGE ONE (15:12)
[2021-01-28] MEDS ORDERED: Dexamethasone 20 MG/5 ML VIAL ONE (15:12)
[2021-01-28] MEDS ORDERED: Ondansetron PF 4 MG/2 ML Vial ONE (15:12)
[2021-01-28] MEDS ORDERED: Lidocaine 1% PF 5 ML VIAL ONE (15:12)
[2021-01-28] MEDS ORDERED: Morphine 2 MG/ML VIAL ONE (17:16)
== END 2021-01-28 18:05 | disposition home or self-care (01) ==
LOC: SDC 11:34
PROVIDERS: ATTEND Specialist
PROC: 0JB70ZZ Excision of Back Subcutaneous Tissue and Fascia, Open Approach (ICD-10-PCS; principal; 2021-01-28)
DX: D17.1 Benign lipomatous neoplasm of skin and subcutaneous tissue of trunk (principal); I10 Essential (primary) hypertension; Z79.899 Other long term (current) drug therapy
CPT/HCPCS: 80053; 85025; 88304; J0690; J1100; J2250; J2270; J2405; J2704; J3010; S0020

== ENCOUNTER 2021-08-03 10:57 | Outpatient (CLI) | payer OTHER ==
[2021-08-03 13:05] LABS: #Basophils 0.1 10x3/uL (0.0-0.2); #Eosinphils 0.3 10x3/uL (0.0-0.5); #Monocytes 0.5 10x3/uL (0.0-1.1); #Neutrophils 4.6 10x3/uL (1.5-8.4); %Basophils 1.5 % (0.0-2.0); %Eosinophils 3.3 % (0.0-6.0); %Monocytes 6.2 % (0.0-10.0); %Neutrophils 58.2 % (40.0-75.0); Hemoglobin 12.4 g/dL (12.0-15.5); Mean Corpuscular HGB CONC 33.2 g/dL (32.0-36.0); Mean Corpuscular Hemoglobin 33.9 pg (27.0-33.0); Mean Corpuscular Volume 101.9 fl (81.6-98.3); Mean Platelet Volume 10.8 fl (7.4-10.4); Platelet Count 324 10x3/uL (150-450); RBC Distribution Width 12.5 % (11.5-14.5); Red Blood Cell (RBC) Count 3.66 10x6/uL (3.90-5.03); White Blood Cell (WBC) Count 7.9 10x3/uL (3.5-10.5)
[2021-08-03 13:15] LABS: Anion Gap 11 mmol/L (10-20); BUN (Urea Nitrogen) 20 mg/dL (7.0-18.7); Calc. Creatinine Clearance 0 mL/min (70-130); Calcium 8.4 mg/dL (7.8-10.44); Carbon Dioxide 25 mmol/L (22-29); Chloride 107 mmol/L (98-107); Glucose 113 mg/dL (70-105); Potassium 4.2 mmol/L (3.5-5.1); Sodium 139 mmol/L (136-145)
[2021-08-04 11:50] LABS: SARS-CoV-2 PCR by NAA Not Detected (NotDetected)
== END 2021-08-03 10:58 | disposition home or self-care (01) ==
LOC: LABBT 10:57
PROVIDERS: ATTEND Orthopaedic Surgery
DX: Z01.818 Encounter for other preprocedural examination (principal); M77.11 Lateral epicondylitis, right elbow; G56.01 Carpal tunnel syndrome, right upper limb; G56.21 Lesion of ulnar nerve, right upper limb; Z20.822 Contact with and (suspected) exposure to COVID-19
CPT/HCPCS: 80048; 85025; 93005; 93010; U0003; U0005

== ENCOUNTER 2021-08-06 07:41 | Day surgery (SDC) | payer OTHER ==
[2021-07-28 11:14] VITALS: BMI 39.4
[2021-08-06] MEDS ORDERED: Midazolam HCl 2 mg/2 ml Vial ONE (09:31)
[2021-08-06] MEDS ORDERED: Xylocaine 1% w/ Epi 1:100K 10 ML VIAL ONE (10:20)
[2021-08-06] MEDS ORDERED: ceFAZolin 2 GM/Dextrose 50 ML IVPB ONE (10:22)
[2021-08-06] MEDS ORDERED: PROPOFOL 200 MG/20 ML VIAL ONE (10:45)
[2021-08-06] MEDS ORDERED: Ondansetron PF 4 MG/2 ML Vial ONE ×2 (10:45→11:10)
[2021-08-06] MEDS ORDERED: Lidocaine 1% PF 5 ML VIAL ONE (10:45)
[2021-08-06] MEDS ORDERED: Fentanyl 100 MCG/2 ML VIAL ONE ×2 (10:54→12:06)
[2021-08-06] MEDS ORDERED: Glycopyrrolate 0.2 MG/ML 5 ML SYRINGE ONE (11:10)
== END 2021-08-06 14:05 | disposition home or self-care (01) ==
LOC: SDC 07:41
PROVIDERS: ATTEND Orthopaedic Surgery
PROC: 01N50ZZ Release Median Nerve, Open Approach (ICD-10-PCS; principal; 2021-08-06)
PROC: 01N40ZZ Release Ulnar Nerve, Open Approach (ICD-10-PCS; principal; 2021-08-06)
DX: G56.01 Carpal tunnel syndrome, right upper limb (principal); G56.21 Lesion of ulnar nerve, right upper limb; M77.11 Lateral epicondylitis, right elbow; I10 Essential (primary) hypertension; M47.812 Spondylosis without myelopathy or radiculopathy, cervical region; Q74.0 Other congenital malformations of upper limb(s), including shoulder girdle; Z87.891 Personal history of nicotine dependence; Z79.899 Other long term (current) drug therapy
CPT/HCPCS: J0690; J2250; J2405; J2704; J3010

== ENCOUNTER 2021-09-09 16:16 | Emergency (ER) | payer OTHER, MEDICAID ==
[~2021-09-09 16:16] MED LIST changes: -Calcium Chloride 1 GM/10 ML Abboject SYRINGE ONE; -EPINEPHrine 1 MG/10 ML Abboject SYRINGE ONE; -ISOVUE-370 76%-LOCM 1 ML ONE; +Iopamidol-370 76% 500 ML 1 ML ONE; -Norepinephrine 4 MG/4 ML VIAL ONE; -PHENYLEPHRINE-NS 100 MCG/ML 10 ML SYRINGE ONE; -Rocuronium Bromide 10 MG/ML (10ML VIAL) ONE; -Sodium Bicarb 50 MEQ/50 ML VIAL ONE
[2021-09-09 19:11] LABS: #Basophils 0.1 thou/uL (0.0-0.2); #Eosinphils 0.4 thou/uL (0.0-0.7); #Lymphocytes 3.3 thou/uL (1.20-3.40); #Monocytes 0.8 thou/uL (0.11-0.59); #Neutrophils 6.4 thou/uL (1.40-6.50); %Basophils 0.9 % (0.0-1.0); %Eosinophils 3.4 % (0.0-10.0); %Lymphocytes 30.4 % (21.0-51.0); %Monocytes 7.3 % (0.0-10.0); Hemoglobin 13.9 g/dL (12.0-16.0); Mean Corpuscular HGB CONC 34.4 g/dL (32.0-36.0); Mean Corpuscular Hemoglobin 35.5 pg (27.0-31.0); Mean Platelet Volume 7.8 fL (7.4-10.4); Platelet Count 278 thou/uL (130-400); RBC Distribution Width 11.5 % (11.5-14.5)
[2021-09-09 19:15] LABS: Bacteria/HPF None Seen HPF (None Seen); Bilirubin Negative (Negative); Blood, Urine Trace (Negative); Clarity Clear (Clear); Glucose, Urine (Dipstick) Normal (Negative); Ketone, Urine Negative (Negative); Leukocyte Negative Leu/uL (Negative); Nitrite Negative (Negative); Protein, Urine (Dipstick) Negative (Neg-Trace); RBC/HPF 0-3 HPF (0-3); Specific Gravity, Urine 1.027 (1.002-1.036); Squamous Epithelial 0-3 HPF (0-3); Urobilinogen Normal mg/dL (Less than 2); WBC/HPF 0-3 HPF (0-3)
[2021-09-09 19:17] LABS: Pregnancy Test - Urine (BHCG) Negative (Negative); Pregu Control Background? CLEAR/WHITE (CLR/WHITE); Pregu Control Bar Appear? YES (CONTROL BAR); Specific Gravity 1.027 (1.002-1.036)
[2021-09-09 19:23] LABS: ALT (SGPT) 101 U/L (8-55); AST (SGOT) 71 U/L (5-34); Albumin 4.1 g/dL (3.5-5.0); Alkaline Phosphatase 88 U/L (40-110); Anion Gap 10 mmol/L (10-20); BUN (Urea Nitrogen) 17 mg/dL (7.0-18.7); Bilirubin, Total 0.2 mg/dL (0.2-1.2); Calc. Creatinine Clearance 0 mL/min (70-130); Calcium 9.2 mg/dL (7.8-10.44); Carbon Dioxide 26 mmol/L (22-29); Chloride 103 mmol/L (98-107); Globulin 3.5 g/dL (2.4-3.5); Glucose 114 mg/dL (70-105); Potassium 3.7 mmol/L (3.5-5.1); Protein, Total 7.6 g/dL (6.0-8.3); Sodium 135 mmol/L (136-145)
[2021-09-09] MEDS ORDERED: Ketorolac Tromethamine 30 MG/ML VIAL ONE (19:28)
[2021-09-09] MEDS ORDERED: Morphine 4 MG/ML VIAL ONE (21:59)
== END 2021-09-09 23:40 | disposition home or self-care (01) ==
LOC: ERS 16:16
DX: N83.202 Unspecified ovarian cyst, left side (principal); Z79.899 Other long term (current) drug therapy; Z79.891 Long term (current) use of opiate analgesic; I10 Essential (primary) hypertension
CPT/HCPCS: 36415; 74177; 76856; 80053; 81003; 81015; 81025; 83690; 85025; 96374; 96375; J1885; J2270; Q9967